=== PATIENT | male | born 1960 | race Caucasian/White ===

== ENCOUNTER 2017-11-08 11:28 | Emergency (ER) | payer MEDICARE ==
[2017-11-08 12:18] LABS: #Eosinphils 0.2 thou/uL (0.0-0.7); #Lymphocytes 1.6 thou/uL (1.20-3.40); #Monocytes 0.6 thou/uL (0.11-0.59); #Neutrophils 4.1 thou/uL (1.40-6.50); %Basophils 0.7 % (0.0-1.0); %Eosinophils 2.4 % (0.0-10.0); %Lymphocytes 24.4 % (21.0-51.0); %Monocytes 8.9 % (0.0-10.0); %Neutrophils 63.5 % (42.0-75.0); Hemoglobin 14.3 g/dL (14.0-18.0); Mean Corpuscular HGB CONC 34.1 g/dL (32.0-36.0); Mean Corpuscular Volume 91.1 fl (80.0-94.0); Mean Platelet Volume 7.2 fL (7.4-10.4); Platelet Count 187 thou/uL (130-400); Red Blood Cell (RBC) Count 4.59 mill/uL (4.70-6.10); White Blood Cell (WBC) Count 6.5 thou/uL (4.8-10.8)
[2017-11-08 12:35] LABS: Bilirubin Negative (Negative); Blood, Urine Large (Negative); Clarity CLEAR (Clear); Glucose, Urine (Dipstick) Negative (Negative); Leukocyte Negative (Negative); Nitrite Negative (Negative); Protein, Urine (Dipstick) Negative (Neg-Trace); Specific Gravity, Urine 1.005 (1.002-1.036); Urobilinogen 0.2 mg/dL (0.2-1.0)
[2017-11-08 12:38] LABS: ALT (SGPT) 27 U/L (8-55); AST (SGOT) 21 U/L (5-34); Albumin 3.9 g/dL (3.5-5.0); Alkaline Phosphatase 67 U/L (40-150); Anion Gap 13 mmol/L (10-20); BUN (Urea Nitrogen) 20 mg/dL (8.4-25.7); Bilirubin, Total 0.3 mg/dL (0.2-1.2); Calc. Creatinine Clearance 0 mL/min (70-130); Calcium 8.7 mg/dL (7.8-10.44); Carbon Dioxide 23 mmol/L (22-29); Chloride 108 mmol/L (98-107); Estimated GFR-MDRD Greater than 90; Globulin 2.6 g/dL (2.4-3.5); Glucose 95 mg/dL (70-105); Potassium 4.9 mmol/L (3.5-5.1); Protein, Total 6.5 g/dL (6.0-8.3); Sodium 139 mmol/L (136-145)
[2017-11-08 12:38] LABS: Bacteria/HPF None Seen HPF (None Seen); Hyaline Casts/LPF 0-3 HYALINE CAST LPF (0-3 Hyaline); RBC/HPF GREATER THAN 50-TNTC HPF (0-3); Squamous Epithelial None Seen HPF (0-3); WBC/HPF 0-3 HPF (0-3)
[2017-11-08] MEDS ORDERED: ISOVUE-370 76%-LOCM 1 ML ONE (14:41)
--- NOTE | 2017-11-08 17:31 | CT ---
CT ABDOMEN WITH AND WITHOUT IV CONTRAST: CT PELVIS WITH AND WITHOUT IV CONTRAST: 11/08/2017 HISTORY: Hematuria. Bleeding from penis. FINDINGS: Post cholecystectomy changes are noted. There are subcentimeter, mot-klqmw-gf-characterize, hypodense lesions in each kidney. No enhancing r enal lesion is seen. No renal or ureteral calculus is visualized bilaterally. No hydronephrosis is present. There is a subcentimeter low density focus seen within the mid portion of the left kidney, which is b est seen on the coronal reformatted images. This may represent a small parapelvic cyst, and it does appear extrinsic to the collecting system, as opposed to within the collecting system. No definite a dditional filling defect is appreciated within the opacified renal collecting systems and ureters jocelyn aterally. The lung bases, liver, spleen, pancreas, bilateral adrenal glands, and urinary bladder demonstrate a normal CT appearance. Minimal vascular calcifications are seen in the abdominal aorta and iliac arteries. There is no free fluid, fluid collection, or lymphadenopathy seen in the abdomen or pelvis. Post surgical changes of the lumbosacral junction are noted, related to posterior fusion, with bipedi cular screws and posterior rods transfixing these levels. There is prominent vacuum phenomenon seen within the T11-T12 intervertebral disk space with loss of height centrally within the T12 vertebral b charmaine, which may represent a prominent Schmorl's node, as opposed to a compression fracture. IMPRESSION: 1. Low density structure within the mid portion left renal collecting system, which likely repre sents a small parapelvic cyst, as opposed to an intrinsic filling defect within the collecting system . However, this is difficult to definitively evaluate on this exam. Given patient's clinical histor y of hematuria, a retrograde study may be helpful for further evaluation, to exclude a potential fill ing defect in the collecting system. 2. No renal or ureteral calculus. POS: [facility]
== END 2017-11-08 17:23 | disposition home or self-care (01) ==
LOC: ERS 11:28
DX: Z79.899 Other long term (current) drug therapy; F17.200 Nicotine dependence, unspecified, uncomplicated; R31.9 Hematuria, unspecified; F32.9 Major depressive disorder, single episode, unspecified; Z79.82 Long term (current) use of aspirin; I10 Essential (primary) hypertension
CPT/HCPCS: 74178; 80053; 81003; 81015; 85025; 87086

== ENCOUNTER → 2017-11-10 | Outpatient (CLI) | payer MEDICARE ==
[2017-11-10 15:39] LABS: Hemoglobin 14.4 g/dL (14.0-18.0); Mean Corpuscular HGB CONC 34.1 g/dL (32.0-36.0); Mean Corpuscular Volume 90.9 fl (80.0-94.0); Mean Platelet Volume 7.1 fL (7.4-10.4); Platelet Count 210 thou/uL (130-400); RBC Distribution Width 11.8 % (11.5-14.5); Red Blood Cell (RBC) Count 4.66 mill/uL (4.70-6.10); White Blood Cell (WBC) Count 6.1 thou/uL (4.8-10.8)
[2017-11-10 16:00] LABS: Anion Gap 9 mmol/L (10-20); BUN (Urea Nitrogen) 16 mg/dL (8.4-25.7); Calc. Creatinine Clearance 0 mL/min (70-130); Calcium 9.4 mg/dL (7.8-10.44); Carbon Dioxide 26 mmol/L (22-29); Chloride 105 mmol/L (98-107); Estimated GFR-MDRD 90; Glucose 92 mg/dL (70-105); Potassium 3.9 mmol/L (3.5-5.1); Sodium 136 mmol/L (136-145)
--- NOTE | 2017-11-11 07:53 | EKG ---
Test Reason : Blood Pressure : / mmHG Vent. Rate : 058 BPM Atrial Rate : 058 BPM P-R Int : 182 ms QRS Dur : 090 ms QT Int : 422 ms P-R-T Axes : 005 -14 -04 degrees QTc Int : 414 ms Sinus bradycardia Minimal voltage criteria for LVH, may be normal variant Borderline ECG No previous ECGs available Confirmed by DAVID MCKINNEY ([id number]) on 11/11/2017 7:53:29 AM Referred By: SG Confirmed By:DAVID MCKINNEY
== END ==
LOC: LABBT 14:26
PROVIDERS: ATTEND Urology
DX: Z01.818 Encounter for other preprocedural examination (principal); R31.9 Hematuria, unspecified
CPT/HCPCS: 80048; 85027; 93005; G0103; 93010

== ENCOUNTER 2017-11-18 15:14 | Outpatient (CLI) | payer MEDICARE ==
[2017-11-18 15:53] LABS: PTT 25.9 SEC (22.9-36.1); Prothrombin Time 12.9 SEC (12.0-14.7)
== END 2017-11-18 15:15 | disposition home or self-care (01) ==
LOC: LABBT 15:14
PROVIDERS: ATTEND Urology
DX: Z01.818 Encounter for other preprocedural examination (principal); R31.0 Gross hematuria
CPT/HCPCS: 85610; 85730; 86850; 86900; 86901

== ENCOUNTER 2017-11-25 05:39 | Day surgery (SDC) | payer MEDICARE ==
[2017-11-10 15:06] VITALS: BMI 45.0
[2017-11-25] MEDS ORDERED: Levofloxacin 500 mg/D5W 100 ml Premix Bag ONE (06:06)
[2017-11-25] MEDS ORDERED: Iothalamate Meglumine 60% 50 ML VIAL FS ONE (06:39)
[2017-11-25] MEDS ORDERED: Fentanyl 100 MCG/2 ML VIAL ONE (07:08)
[2017-11-25] MEDS ORDERED: Midazolam HCl 2 mg/2 ml Vial ONE (07:08)
[2017-11-25] MEDS ORDERED: Promethazine HCl 25 MG/ML VIAL ONE (08:49)
[2017-11-25] MEDS ORDERED: Phenazopyridine HCl 97.5 MG TABLET ONE ×2 (09:12)
--- NOTE | 2017-11-25 09:52 | RAD ---
LEFT RETROGRADE PYELOGRAM: History: Stent placement. FINDINGS: This is a series of 9 images which show a left ureteral stent to be placed within a nondilated lanterman developmental centerg system. Stent position appears satisfactory. IMPRESSION: Placement of left ureteral stent. POS: C
[2017-11-25] MEDS ORDERED: Ondansetron ODT 4 MG TAB ONE (10:52)
--- NOTE | 2017-11-25 11:49 | OP ---
DATE OF PROCEDURE: 11/25/2017 PREOPERATIVE DIAGNOSES: A 57-year-old morbidly obese male with history of gross hematuria. CT demonstrating low density left mid pole peripelvic cysts versus possible filling defect. POSTOPERATIVE DIAGNOSES: A 57-year-old morbidly obese male with history of gross hematuria. CT demonstrating low density left mid pole peripelvic cysts versus possible filling defect. PROCEDURE: Cystoscopy, dilation of left intramural distal ureter, flexible ureteroscopy, pyeloscopy, 6 x 26 double-J ureteral stent placement with dangler. SURGEON: Kirsty Shane M.D. ANESTHESIA: General. COMPLICATIONS: None apparent. SPECIMEN: None. INTRAOPERATIVE FINDINGS: 1. Coapting lateral lobes of the prostate with no significant obstruction. 2. Bladder is grossly unremarkable. 3. Left retrograde pyelogram negative for filling defects. 4. Left pyeloscopy demonstrating no evidence of intrinsic calyceal pathology amendable to biopsy. INDICATIONS FOR THE PROCEDURE AND HISTORY: Mr. Sigala is a 57-year-old morbidly obese male who presented to the emergency room due to acute onset of gross hematuria, with subsequent clearing spontaneously. The patient with history of chronic back pain with multiple lumbar surgeries and narcotics. His urine cytology is negative, culture negative and he presents today for diagnostic ureteroscopy, pyeloscopy. Risks and complications of the procedure was reviewed with patient in detail including, but not limited to, bleeding, pain, infection, sepsis, stricture formation, ureteral renal bladder injury reviewed. All questions answered and he desired to proceed. DESCRIPTION OF THE PROCEDURE: After informed consent is signed, the patient is taken to the operating room, placed in dorsal lithotomy position with the genital area prepped and draped in halle usual sterile fashion. A 21-Egyptian cystoscope was utilized. Bilateral CRISTINO hose, SCDs, and broad-spectrum antibiotics were provided. The anterior and posterior urethra was within normal limits. The lateral lobes of the prostate demonstrated coaptation; however, no obstruction noted. Bladder was entered which demonstrated normal bladder mucosa with no evidence of bladder mass, diverticulum or stones. The UO was identified in normal anatomical location with clear efflux of urine bilaterally. At this time, a 5 Egyptian open-ended catheter was utilized for retrograde pyelogram which demonstrated normal findings with no evidence of caliceal dilatation. No filling defect was appreciated. A 0.35 sensor wire was then placed in the left upper pole. Using a [employer] 4 cm 12 Egyptian balloon dilator, we dilated the intramural ureter with ease. Pressure was held for approximately 1-2 minutes. We subsequently passed a 10 Egyptian dual -lumen access sheath to the level of the left renal pelvis and a second 0.35 Super Stiff wire was passed. We passed a flexible ureteroscope via the rigid wire to the level of the renal pelvis. We surveyed the collecting system. Each calyces were directly inspected which demonstrated no evidence of intraluminal, caliceal mass of concern. I did repeat a retrograde at the level of the UPJ demonstrating that we have evaluated each mahamed thoroughly. There were no suspicious lesions warranting biopsy. No active oozing was noted. The ureter was surveyed which demonstrated no evidence of ureteral mucosal trauma and no evidence of ureteral lesion was found. A 6 x 26 double-J ureteral stent was passed over a guidewire. All guidewires were removed. The stent was placed in appropriate position with a dangler left in situ. Bladder was emptied. The dangler was taped to the patient's pubic symphysis proximal penis. He tolerated the procedure well. I did provide him with [place] refill prescription due to today's surgery 7.5, #40, ciprofloxacin, AZO, Flomax refill , Colace b.i.d. He will return to my clinic next week for stent pull on dangler. VIVI
[2017-11-25] MEDS ORDERED: Glycopyrrolate 0.2 MG/ML 5 ML SYRINGE ONE ×2 (12:16)
[2017-11-25] MEDS ORDERED: Lidocaine 1% PF 5 ML VIAL ONE (12:16)
[2017-11-25] MEDS ORDERED: PROPOFOL 200 MG/20 ML VIAL ONE (12:16)
[2017-11-25] MEDS ORDERED: ePHEDrine/0.9% NaCl/PF SYRINGE 50 mg/10 ml ONE (12:16)
[2017-11-25] MEDS ORDERED: PHENYLEPHRINE-NS 100 MCG/ML 10 ML SYRINGE ONE (12:16)
== END 2017-11-25 11:14 | disposition home or self-care (01) ==
LOC: SDC 05:39
PROVIDERS: ATTEND Urology
PROC: 0T778DZ Dilation of Left Ureter with Intraluminal Device, Via Natural or Artificial Opening Endoscopic (ICD-10-PCS; principal; 2017-11-25)
PROC: BT1FZZZ Fluoroscopy of Left Kidney, Ureter and Bladder (ICD-10-PCS; 2017-11-25)
DX: R31.0 Gross hematuria (principal); E78.5 Hyperlipidemia, unspecified; I10 Essential (primary) hypertension; F32.9 Major depressive disorder, single episode, unspecified; M54.16 Radiculopathy, lumbar region; F17.210 Nicotine dependence, cigarettes, uncomplicated; N40.1 Benign prostatic hyperplasia with lower urinary tract symptoms; R35.0 Frequency of micturition; R35.1 Nocturia; E66.01 Morbid (severe) obesity due to excess calories; Z68.42 Body mass index [BMI] 45.0-49.9, adult; Z79.1 Long term (current) use of non-steroidal anti-inflammatories (NSAID); Z79.899 Other long term (current) drug therapy
CPT/HCPCS: 74420; 96374; C1758; C1769; J1956; J2250; J2550; J3010; Q0162; Q9961

== ENCOUNTER 2018-06-17 12:45 | Outpatient (CLI) | payer MEDICARE ==
[2018-06-17 13:16] LABS: Anion Gap 13 mmol/L (10-20); BUN (Urea Nitrogen) 17 mg/dL (8.4-25.7); Calc. Creatinine Clearance 0 mL/min (70-130); Calcium 9.4 mg/dL (7.8-10.44); Carbon Dioxide 26 mmol/L (22-29); Chloride 107 mmol/L (98-107); Estimated GFR-MDRD 78; Glucose 98 mg/dL (70-105); Potassium 4.5 mmol/L (3.5-5.1); Sodium 141 mmol/L (136-145)
[2018-06-17 13:42] LABS: Bilirubin Small (Negative); Blood, Urine Negative (Negative); Clarity Hazy (Clear); Glucose, Urine (Dipstick) Negative (Negative); Leukocyte Negative (Negative); Nitrite Negative (Negative); Protein, Urine (Dipstick) Negative (Neg-Trace); Specific Gravity, Urine 1.025 (1.005-1.030); Urobilinogen 0.2 mg/dL (0.2-1.0)
[2018-06-17 13:50] LABS: Bacteria/HPF 2+ HPF (None Seen); RBC/HPF None Seen HPF (0-3); Squamous Epithelial None Seen HPF (0-3); WBC/HPF None Seen HPF (0-3)
--- NOTE | 2018-06-17 15:14 | CT ---
CT ABDOMEN WITH AND WITHOUT CONTRAST CT PELVIS WITH AND WITHOUT CONTRAST: (CT UROGRAM) Date: 06/17/18 HISTORY: 58-year-old male with R31.0 gross hematuria and left flank pain. TECHNIQUE: IV contrast: 99 mL [id number]. Precontrast scan, nephrographic/venous phase scan, and excretory/pyelographic phase scan, performed t hrough the entire abdomen and pelvis. COMPARISON: 11/08/17. FINDINGS: Again noted is the small low density lesion in the left renal sinus at the upper-mid pole (36 of 101, series 2; 38 of 101, series 3 & 4; 119 of 203, series 602). It appears to be slightly larger now osbaldo n previously, currently measuring 0.8 x 0.8 x 1.5 cm. It abuts and indents one of the left calices. There is no hydronephrosis. The bilateral renal parenchyma demonstrate several tiny subcentimeter hyp odensities which are too small to characterize, unchanged since the previous CT. There are no renal, ureteral, or bladder calculi. Urinary bladder is decompressed. No hydroureteronephrosis. No acute fin dings involving the colon. No small bowel dilation. No abdominal aortic aneurysm. No definite patholo gy identified involving liver, adrenals, pancreas, spleen, or appendix, or abdominal aorta. No ascite s. There are cholecystectomy clips in the gallbladder fossa. Bilateral pedicle screws and laminectomy defects at L5 and S1. IMPRESSION: 1. Minimal interval increase in size of left parapelvic low density lesion in the left renal sinus. This is probably a cyst, although that is not certain. Continued serial follow-up is recommended, wit h the next CT in 6 months. 2. Status post posterior lumbar fusion and laminectomy at lumbosacral junction. 3. Status post cholecystectomy. POS: [facility]
== END 2018-06-17 12:46 | disposition home or self-care (01) ==
LOC: SCSCT 12:45
PROVIDERS: ATTEND Urology
DX: N28.1 Cyst of kidney, acquired (principal); R31.0 Gross hematuria; R35.0 Frequency of micturition; Z87.891 Personal history of nicotine dependence; N28.9 Disorder of kidney and ureter, unspecified; Z98.1 Arthrodesis status; Z98.890 Other specified postprocedural states; Z90.49 Acquired absence of other specified parts of digestive tract
CPT/HCPCS: 36415; 74178; 80048; 81001; 87086; 88112

== ENCOUNTER 2019-01-03 08:06 | Outpatient (CLI) | payer MEDICARE ==
[2019-01-03] MEDS ORDERED: Iopamidol 370 76% 100 ML VIAL ONE (09:00)
[2019-01-03 09:32] LABS: Bilirubin Negative (Negative); Blood, Urine Negative (Negative); Clarity Clear (Clear); Glucose, Urine (Dipstick) Negative (Negative); Leukocyte Negative (Negative); Nitrite Negative (Negative); Protein, Urine (Dipstick) Negative (Neg-Trace); Specific Gravity, Urine 1.015 (1.005-1.030); Urobilinogen 0.2 mg/dL (0.2-1.0); pH, Urine 5.5 (5.0-9.0)
--- NOTE | 2019-01-03 09:34 | CT ---
CT of the abdomen and pelvis with and without IV contrast INDICATION: Follow-up peripelvic cyst affecting the left renal collecting system TECHNIQUE: Noncontrast CT of the abdomen and pelvis was performed. Postcontrast images were obtained in the nephrographic phase and delayed phase. Axial and coronal reformatted images were constructed from the raw data. Comparisons are made with a CT the abdomen and pelvis with and without contrast da margarita June 17, 2018 and November 08, 2017. FINDINGS: ABDOMEN: Liver: No focal hepatic lesion is evident. The gallbladder is surgically absent.. Pancreas: Normal. Gallbladder: The gallbladder is surgically absent. Adrenal glands: Normal. Kidneys: There are small subcentimeter renal cortical cysts involving both kidneys. The suspected lef t peripelvic cyst involving the left mid kidney, within the renal sinus, is stable measuring 6 mm. No new solid renal neoplasm or gross urothelial lesion is identified.. Spleen: Normal. Retroperitoneum: There are mild vascular calcifications involving the abdominal aorta. Pelvis: Bowel: There is a mild amount of retained stool within the colon. There is a normal appendix in the r ight lower quadrant. The small bowel is of normal caliber. Renal collecting system and bladder: No intraluminal filling defect or gross urothelial lesion is deirdre ntified. Reproductive structures: Normal. Rectum and perirectal soft tissues: Normal. Osseous structures: Stable compression abnormality involving T12. There is scattered degenerative and osteoarthritic change present. IMPRESSION: 1. Stable left peripelvic cysts and small subcentimeter renal cortical cysts.
[2019-01-03 10:05] LABS: Calc. Creatinine Clearance 0 mL/min (70-130); Estimated GFR-MDRD Greater than 90
[2019-01-03 10:31] LABS: Bacteria/HPF None Seen HPF (None Seen); Hyaline Casts/LPF NONE SEEN LPF (0-3 Hyaline); RBC/HPF None Seen HPF (0-3); Squamous Epithelial None Seen HPF (0-3); WBC/HPF None Seen HPF (0-3)
== END 2019-01-03 08:07 | disposition home or self-care (01) ==
LOC: SCSCT 08:06
PROVIDERS: ATTEND Urology
DX: Z12.5 Encounter for screening for malignant neoplasm of prostate (principal); N28.1 Cyst of kidney, acquired; Z87.448 Personal history of other diseases of urinary system
CPT/HCPCS: 36415; 74178; 81001; 82565; 87086; 88121; G0103; Q9967

== ENCOUNTER 2019-04-06 19:00 | Emergency (ER) | payer MEDICARE ==
[2019-04-06] MEDS ORDERED: Ketorolac Tromethamine 30 MG/ML VIAL ONE (19:58)
--- NOTE | 2019-04-06 20:04 | RAD ---
LEFT KNEE FOUR VIEWS: 04/06/19 INDICATION: Fall with left knee pain. COMPARISON: None. FINDINGS: No acute fracture or subluxation is evident. There is mild joint capsular distention. IMPRESSION: No acute fracture or subluxation. Mild joint capsular distention. POS: [facility]
== END 2019-04-06 20:20 | disposition home or self-care (01) ==
LOC: SCSER 19:00
DX: S83.92XA Sprain of unspecified site of left knee, initial encounter (principal); G47.30 Sleep apnea, unspecified; E66.9 Obesity, unspecified; E78.5 Hyperlipidemia, unspecified; F32.9 Major depressive disorder, single episode, unspecified; F17.200 Nicotine dependence, unspecified, uncomplicated; X50.1XXA Overexertion from prolonged static or awkward postures, initial encounter
CPT/HCPCS: 96372; J1885

== ENCOUNTER 2019-10-14 08:20 | Outpatient (CLI) | payer MEDICARE ==
--- NOTE | 2019-10-14 10:49 | RAD ---
PA AND LATERAL VIEWS CHEST: Date: 10/14/2019 HISTORY: Dyspnea. COMPARISON: 06/01/2020. FINDINGS: The heart size is normal. No focal areas of consolidation, pneumothoraces, or pleural effusions are s een. IMPRESSION: No acute process. POS: [facility]
== END 2019-10-14 08:21 | disposition home or self-care (01) ==
LOC: RAD 08:20
PROVIDERS: ATTEND Internal Medicine Critical Care Medicine
DX: R06.00 Dyspnea, unspecified (principal)
CPT/HCPCS: 71046

== ENCOUNTER 2019-10-28 14:30 | Emergency (ER) | payer MEDICARE ==
[2019-10-28] MEDS ORDERED: Morphine 4 MG/ML VIAL ONE (15:58)
== END 2019-10-28 16:33 | disposition home or self-care (01) ==
LOC: ERS 14:30
DX: M54.2 Cervicalgia (principal); I25.10 Atherosclerotic heart disease of native coronary artery without angina pectoris; E66.9 Obesity, unspecified; E78.5 Hyperlipidemia, unspecified; I10 Essential (primary) hypertension; F32.9 Major depressive disorder, single episode, unspecified; Z87.891 Personal history of nicotine dependence; Z79.899 Other long term (current) drug therapy; Z79.82 Long term (current) use of aspirin
CPT/HCPCS: 96372; 99283; J2270

== ENCOUNTER 2019-12-14 17:54 | Inpatient (IN) | payer MEDICARE ==
[2019-12-14 18:42] LABS: #Eosinphils 0.1 thou/uL (0.0-0.7); #Lymphocytes 1.2 thou/uL (1.20-3.40); #Monocytes 0.7 thou/uL (0.11-0.59); #Neutrophils 4.8 thou/uL (1.40-6.50); %Basophils 0.6 % (0.0-1.0); %Eosinophils 1.8 % (0.0-10.0); %Lymphocytes 17.9 % (21.0-51.0); %Monocytes 9.7 % (0.0-10.0); %Neutrophils 69.9 % (42.0-75.0); Hemoglobin 14.4 g/dL (14.0-18.0); Mean Corpuscular HGB CONC 32.3 g/dL (32.0-36.0); Mean Corpuscular Hemoglobin 30.2 pg (27.0-31.0); Mean Corpuscular Volume 93.7 fL (78.0-98.0); Mean Platelet Volume 7.4 fL (7.4-10.4); Platelet Count 177 thou/uL (130-400); RBC Distribution Width 11.5 % (11.5-14.5); Red Blood Cell (RBC) Count 4.76 mill/uL (4.70-6.10); White Blood Cell (WBC) Count 6.9 thou/uL (4.8-10.8)
[2019-12-14] MEDS ORDERED: Lorazepam 2 MG/ML VIAL ONE (18:54)
[2019-12-14 19:04] LABS: ALT (SGPT) 24 U/L (8-55); AST (SGOT) 26 U/L (5-34); Alkaline Phosphatase 73 U/L (40-110); Anion Gap 15 mmol/L (10-20); BUN (Urea Nitrogen) 11 mg/dL (8.4-25.7); Bilirubin, Total 0.7 mg/dL (0.2-1.2); Calc. Creatinine Clearance 0 mL/min (70-130); Calcium 9.6 mg/dL (7.8-10.44); Carbon Dioxide 25 mmol/L (22-29); Chloride 103 mmol/L (98-107); Estimated GFR-MDRD Greater than 90; Glucose 93 mg/dL (70-105); Sodium 139 mmol/L (136-145)
--- NOTE | 2019-12-14 21:53 | PDOC.FPRHP ---
- History of Present Illness Chief Complaint: leg weakness, falls History of Present Illness: 59 y/o M PMHx: CAD, insomnia, ARSALAN, BPH, chronic neck pain 2/2 spinal stenosis presents to ED for left leg weakness, falls. He was recently admitted for this same problem. Recently he has started feeling more unsteady on his feet with a couple of recent falls. He was diagnosed earlier this week with cellulitis and started on doxycycline. He reports his symptoms started in May. He reports episodes of weakness, feeling unsteady, and urinary incontinence. His symptoms have been getting progressively worse. He reports insomnia and has not been sleeping well lately. We discussed this patient with Dr. Weldon who believes that he is much worse than he has been. She wanted him admitted for further workup. The ER doctor briefly discussed the case with neurosurgery who do not belief this is related to cauda equina syndrome. ED Course: He was evaluated in the ED by Dr. Lindsay, he was given ativan 2mg. postvoid residual checked with bladder scan and was 120mL. - Allergies/Adverse Reactions Allergies Allergy/AdvReac Type Severity Reaction Status Date / Time No Known Allergies Allergy Unverified 10/23/19 01:32 - Home Medications Medication Instructions Recorded Confirmed Type Citalopram Hydrobromide 20 mg PO BID 11/10/17 12/14/19 History [Citalopram HBr] Diclofenac Sodium 75 mg PO BID 11/10/17 12/14/19 History HYDROcodone/Acetaminophen 1 tab PO TID PRN 11/10/17 12/14/19 History [Hydrocodone-Acetamin 7.5-325] Losartan Potassium 100 mg PO DAILY 11/10/17 12/14/19 History Metoprolol Succinate 50 mg PO DAILY 11/10/17 12/14/19 History Simvastatin [Zocor] 20 mg PO HS 11/10/17 12/14/19 History Tamsulosin HCl 0.4 mg PO HS 11/10/17 12/14/19 History Zolpidem Tartrate [Ambien] 10 mg PO HS 11/10/17 12/14/19 History traZODone HCl [Trazodone HCl] 100 mg PO HS 11/10/17 12/14/19 History Albuterol Sulfate [Ventolin HFA] 2 puff INH Q4HR PRN 12/12/19 12/12/19 History Omeprazole 40 mg PO DAILY 12/12/19 12/14/19 History Amitriptyline HCl [Elavil] 150 mg PO HS tab 12/13/19 12/14/19 Rx Aspirin [Ecotrin Low Strength] 81 mg PO DAILY 12/13/19 12/14/19 History Beta-Carotene(A)-Vits C,E/Mins 1 tablet PO DAILY 12/13/19 12/14/19 History [Vision Vitamins] Doxycycline [Vibramycin] 100 mg PO BID #20 cap 12/13/19 12/14/19 Rx - History PMHx: CAD, insomnia, BPH, chronic neck pain, spinal stenosis, depression PSHx: cholecystectomy, back sx x2, knee sx, bilateral foot sx FHx: noncontributory Social: former tobacco use, drinks socially, 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 Weldon - Review of Systems ROS unobtainable: due to mental status (Pt falling asleep regularly during the exam) General: denies: fever/chills, weight/appetite/sleep changes, night sweats, fatigue Eyes: denies: eye pain, vision changes ENT: denies: nasal congestion, rhinorrhea Respiratory: denies: cough Cardiovascular: denies: chest pain, palpitation, edema Genitourinary: denies: incontinence, dysuria Skin: denies: rashes, lesions Musculoskeletal: reports: pain, tenderness, stiffness Neurological: reports: weakness. denies: syncope, seizure Psychological: reports: depression. denies: anxiety - Vital signs BP: 170/92, Pulse: 61, Resp: 20, Temp: 98.7 (Oral), Pain: 0, O2 sat: 96 on ( Room Air), Wt 131 kg. - Physical Exam Constitutional: other (Pt is oriented x2, falling asleep during exam, no distress.) HEENT: PERRLA, grossly normal hearing, other (MMM, cannot move eyes) Neck: no JVD Heart: RRR, normal S1/S2, no murmurs/rubs/gallops Lungs: CTAB, good air movement, other (tachypnic) Abdomen: other (obese, non tender) Musculoskeletal: normal structure, normal tone Neurological: CN II-XII intact, other (Exam was limited by pt's somulence. Proprioception is decreased in lower extremities, cerebellar testing was normal except for his finger to nose testing.) Skin: good turgor, capillary refill <2 seconds, other (improving redness on his left lower foot) Psychiatric: other (sleepy) FMR H&P: Results - Labs Result Diagrams: 12/15/19 03:08 12/15/19 03:08 Lab results: WBC 6.9 thou/uL (4.8-10.8) 12/14/19 18:31 Hgb 14.4 g/dL (14.0-18.0) 12/14/19 18:31 Hct 44.6 % (42.0-52.0) 12/14/19 18: MCV 93.7 fL (78.0-98.0) 12/14/19 18:31 Plt Count 177 thou/uL (130-400) 12/14/19 18:31 Neutrophils % 69.9 % (42.0-75.0) 12/14/19 18:31 Sodium 139 mmol/L (136-145) 12/14/19 18: Potassium 4.0 mmol/L (3.5-5.1) 12/14/19 18: Chloride 103 mmol/L (98-107) 12/14/19 18:31 Carbon Dioxide 25 mmol/L (22-29) 12/14/19 18:31 BUN 11 mg/dL (8.4-25.7) 12/14/19 18: Creatinine 0.79 mg/dL (0.7-1.3) 12/14/19 18: Glucose 93 mg/dL (70-105) 12/14/19 18: Calcium 9.6 mg/dL (7.8-10.44) 12/14/19 18: Total Bilirubin 0.7 mg/dL (0.2-1.2) 12/14/19 18:31 AST 26 U/L (5-34) 12/14/19 18:31 ALT 24 U/L (8-55) 12/14/19 18:31 Alkaline Phosphatase 73 U/L (40-110) 12/14/19 18:31 Serum Total Protein 7.0 g/dL (6.0-8.3) 12/14/19 18: Albumin 4.0 g/dL (3.5-5.0) 12/14/19 18:31 FMR H&P: A/P - Problem List (1) BPH (benign prostatic hyperplasia) Current Visit: No Status: Acute Code(s): N40.0 - BENIGN PROSTATIC HYPERPLASIA WITHOUT LOWER URINRY TRACT SYMP (2) CAD (coronary artery disease) Current Visit: No Status: Acute Code(s): I25.10 - ATHSCL HEART DISEASE OF [place] CORONARY ARTERY W/O ANG PCTRS (3) Cellulitis of left foot Current Visit: No Status: Acute Code(s): L03.116 - CELLULITIS OF LEFT LOWER LIMB (4) Chronic pain Current Visit: No Status: Acute Code(s): G89.29 - OTHER CHRONIC PAIN (5) Depression Current Visit: No Status: Acute Code(s): F32.9 - MAJOR DEPRESSIVE DISORDER, SINGLE EPISODE, UNSPECIFIED (6) H/O fall Current Visit: No Status: Acute Code(s): Z91.81 - HISTORY OF FALLING (7) HLD (hyperlipidemia) Current Visit: No Status: Acute Code(s): E78.5 - HYPERLIPIDEMIA, UNSPECIFIED (8) HTN (hypertension) Current Visit: No Status: Acute Code(s): I10 - ESSENTIAL (PRIMARY) HYPERTENSION (9) Obesity Current Visit: No Status: Acute Code(s): E66.9 - OBESITY, UNSPECIFIED (10) Spinal stenosis Current Visit: No Status: Acute Code(s): M48.00 - SPINAL STENOSIS, SITE UNSPECIFIED - Plan 1. h/o Fall Pt reports recent falls and urinary incontinence. CT head from yesterday is negative for acute intracranial findings. Per family these changes have been ongoing for about [address] Mock with neurosurgery who is working up his spinal stenosis of his neck. -Pt is too large for MRI and also does not believe he could lay still without pain -Consult PT/OT -Neuro tests are grossly normal, although there was some difficulty with the pt falling asleep during the exam. May represent ARSALAN vs sleep -Cosult Neurology in the AM 2. LLE cellulitis -Continue home doxycycline -Appears improved 3. CAD -Cont aspirin, losartan, metoprolol 4. HTN -Cont losartan, metoprolol 5. HLD -Cont simvastatin 6. Depression -Cont celexa 7. BPH -Cont tasulosin 8. Chronic pain 2/2 spinal stenosis -Cont norco, diclofenac, amitriptyline 9. Possible ARSALAN -Pending ABG to check CO2 -Autopap if available tonight Diet: HH VTE ppx: lovenox Code Status: Full Disposition: DC in 1-2 days PCP: Dr. Weldon Addendum - Attending - Attending Attestation Date/Time: 12/15/19 0807 I personally evaluated the patient and discussed the management with Dr. Randall. I agree with the History, Examination, Assessment and Plan documented above with any addition or exceptions noted below. Patient on admission largely appeared similar to his presentation earlier this week. I spoke with his PCP Dr. Weldon and she states that he is typically very lucid and able to hold a conversation, whereas he was more inattentive and intermittently somnolent, especially apparently during the residents' evaluation. He has a relatively nonfocal neurologic exam. His SILT throughout, including to light touch in the L4/L5 and upper S distributions. He again does not have elicitable LE reflexes, but his motor function is 5/5. He was unable to ambulate on command but managed to transfer to chair without nurse knowledge on his own. His hear and lung exam is unchanged. His LLE cellulitis is unchanged from prior. Acute encephalopathy -recent CT unremarkable -will get blood gas to eval for hypoventilation, I have low suspicion for PE at this time -if hypoventilation I also discussed with Dr. Weldon who feels likely 2/2 obesity-hypoventilation syndrome. I think this is possible, but sleep apnea with ? pulm HTN as a sequelae remains a consideration. I believe his family is focused on his cervical stenosis, but I do not know of a case of hypoventilation caused by this. Further workup pending BG. -glucose is normal -no evidence for cirrhosis -recent CT with no evidence of for NPH Frequent falls -see above -?B12 deficiency, low suspicion for spinal abscess as no fever or significant focal findings -PT to evaluate, he will likely need placement -low clinical suspicion for cauda equina and neurosx was consulted by the ER, they agree For imaging he apparently will not fit in an MRI scanner. I have asked if we could at least get his neck and we will see, with eval limited by his respiratory status. A CT may be helpful as well.
[2019-12-14] MEDS ORDERED: Ondansetron PF 4 MG/2 ML Vial IVP PRN (23:51)
[2019-12-14] MEDS ORDERED: Acetaminophen 650 MG Suppository PR PRN (23:51)
[2019-12-14] MEDS ORDERED: Ondansetron ODT 4 MG TAB PO PRN (23:51)
[2019-12-15 00:07] VITALS: BMI 40.5
[2019-12-15 01:26] LABS: Actual Bicarbonate (HCO3a) 29.2 mEq/L (22-28); Base Excess (BEa) 0.6 mEq/L (-2.0 to +3.0); Calcium, Ionized 1.23 mmol/L (1.12-1.30); Carboxyhemoglobin (COHb) 1.8 gm% (0.0-3.0); Hemoglobin (Hb) 14.9 g/dL (14.0-18.0); O2 Tension (PaO2), arterial 60.2 mmHg (> 80.0); Potassium - ABG Lab 3.99 mmol/L (3.70-5.30); pH, Arterial 7.27 (7.35-7.45)
[2019-12-15 01:29] LABS: CO2 Tension 64.6 mmHg (35.0-45.0); Puncture Site LRA
--- NOTE | 2019-12-15 01:45 | PDOC.BPN ---
<Kayla Randall - Last Filed: 12/15/19 01:43> - Brief Progress Note Received call from nurse that pt desatted to 80s while he was asleep. They had not gotten ABG yet and he hadn't received CPAP to use overnight. Asked them to call and get ABG and then went up to eval pt. He appeared tachypneic. He was alert and able to talk to me, satting 96% on 2L O2. Lungs had diminished breath sounds at bases and CTAB otherwise. ABG result showed pH 7.27, pO2 60.2, pCO2 64.6, HCO3 29.2 Recommended transferring pt to IMCU overnight on BIPAP. Will monitor closely. Discussed with Dr. Campbell who agreed with plan. <Shar Campbell - Last Filed: 12/15/19 08:19> Addendum - Attending - Attending Attestation Date/Time: 12/15/19 0818 On my eval after BiPAP had been in place the patient was more interactive than reported by nursing and Dr. Randall. Repeat BG improved. Continue efforts at workup.
[2019-12-15 03:34] LABS: #Lymphocytes 0.7 thou/uL (1.20-3.40); #Monocytes 0.6 thou/uL (0.11-0.59); #Neutrophils 5.4 thou/uL (1.40-6.50); %Basophils 0.1 % (0.0-1.0); %Eosinophils 0.4 % (0.0-10.0); %Lymphocytes 10.4 % (21.0-51.0); %Neutrophils 80.1 % (42.0-75.0); Hemoglobin 13.7 g/dL (14.0-18.0); Mean Corpuscular HGB CONC 31.7 g/dL (32.0-36.0); Mean Corpuscular Hemoglobin 30.3 pg (27.0-31.0); Mean Corpuscular Volume 95.6 fL (78.0-98.0); Platelet Count 169 thou/uL (130-400); RBC Distribution Width 11.4 % (11.5-14.5); Red Blood Cell (RBC) Count 4.51 mill/uL (4.70-6.10); White Blood Cell (WBC) Count 6.8 thou/uL (4.8-10.8)
[2019-12-15 04:15] LABS: ALT (SGPT) 22 U/L (8-55); AST (SGOT) 28 U/L (5-34); Albumin 3.6 g/dL (3.5-5.0); Alkaline Phosphatase 66 U/L (40-110); Anion Gap 15 mmol/L (10-20); BUN (Urea Nitrogen) 13 mg/dL (8.4-25.7); Bilirubin, Total 0.4 mg/dL (0.2-1.2); Calc. Creatinine Clearance 201 mL/min (70-130); Carbon Dioxide 23 mmol/L (22-29); Chloride 105 mmol/L (98-107); Estimated GFR-MDRD Greater than 90; Globulin 3.2 g/dL (2.4-3.5); Glucose 103 mg/dL (70-105); Potassium 4.4 mmol/L (3.5-5.1); Protein, Total 6.8 g/dL (6.0-8.3); Sodium 139 mmol/L (136-145)
--- NOTE | 2019-12-15 06:09 | PDOC.FM ---
- Subjective Subjective: Pt sleeping on BiPAP this morning. Did not arouse with verbal/tactile stimulation. - Objective MAR Reviewed: Yes Vital Signs & Weight: Vital Signs (12 hours) Temp Pulse Resp BP Pulse Ox 12/15/19 03:43 97.5 F L 12/15/19 02:39 71 28 H 97 12/15/19 02:00 96 12/15/19 00:00 97 12/14/19 23:25 98 F 70 20 136/68 97 Weight Weight 131.8 kg Most Recent Monitor Data Heart Rate from ECG 57 NIBP 122/67 NIBP BP-Mean 85 Respiration from ECG 14 SpO2 96 Result Diagrams: 12/15/19 03:08 12/15/19 03:08 Phys Exam - Physical Examination Constitutional: NAD Respiratory: no wheezing, clear to auscultation bilateral poor air movement Cardiovascular: RRR, no significant murmur Gastrointestinal: soft, non-tender, positive bowel sounds Musculoskeletal: edema present (trace b/l) appears somnolent Deviation from normal: LLE cellulitis extending up to ankle, 1+ pitting edema at ankle, erythema -: improved from previous exam Dx/Plan (1) BPH (benign prostatic hyperplasia) Code(s): N40.0 - BENIGN PROSTATIC HYPERPLASIA WITHOUT LOWER URINRY TRACT SYMP Status: Acute (2) CAD (coronary artery disease) Code(s): I25.10 - ATHSCL HEART DISEASE OF [place] CORONARY ARTERY W/O ANG PCTRS Status: Acute (3) Cellulitis of left foot Code(s): L03.116 - CELLULITIS OF LEFT LOWER LIMB Status: Acute (4) Chronic pain Code(s): G89.29 - OTHER CHRONIC PAIN Status: Acute (5) Depression Code(s): F32.9 - MAJOR DEPRESSIVE DISORDER, SINGLE EPISODE, UNSPECIFIED Status : Acute (6) H/O fall Code(s): Z91.81 - HISTORY OF FALLING Status: Acute (7) HLD (hyperlipidemia) Code(s): E78.5 - HYPERLIPIDEMIA, UNSPECIFIED Status: Acute (8) HTN (hypertension) Code(s): I10 - ESSENTIAL (PRIMARY) HYPERTENSION Status: Acute (9) Obesity Code(s): E66.9 - OBESITY, UNSPECIFIED Status: Acute (10) Spinal stenosis Code(s): M48.00 - SPINAL STENOSIS, SITE UNSPECIFIED Status: Acute - Plan Plan: Acute encephalopathy H/o Fall, weakness, urinary incontinence - 6 month decline per family - Pt is too large in girth for MRI; however, will call MRI to see if cervical spine and MRI brain can be performed - PT/OT consulted - Neurology, Dr. Shin consulted. Requested EEG which has been ordered Acute hypercapneic respiratory failure - pt currently on BiPAP 12/6 IPAP/EPAP with improved ABG as compared to being on NC O2 - desatted to 80% overnight, may represent ARSALAN vs OHS vs decreased respiratory drive as some complication of his cervical spine stenosis. Other DDx includes decreased respiratory drive 2/2 narcotics and/or polypharmacy - May consider discussing case w/ pt's neurosurgeon Dr. Mock if pt does not clinically improve over the next couple of days. LLE cellulitis, improving -Continue home doxycycline CAD -Cont aspirin, losartan, metoprolol HTN -Cont losartan, metoprolol HLD -Cont simvastatin Depression -Cont celexa BPH -Cont tamsulosin Chronic pain 2/2 spinal stenosis -Cont norco, diclofenac, amitriptyline Diet: HH VTE ppx: lovenox Code Status: Full PCP: Dr. Weldon Addendum - Attending - Attending Attestation Date/Time: 12/15/19 3590 I personally evaluated the patient and discussed the management with Dr. Carrasquillo. I agree with the History, Examination, Assessment and Plan documented above with any addition or exceptions noted below. Patient currently on Bipap getting EEG. I suspect his encephalopathy is 2/2 ARSALAN/ Obesity hypoventilation and sedative effect from his narcotics. Pursuing workup. Neurology consulted.
[2019-12-15 07:35] LABS: Base Excess (BEa) -0.7 mEq/L (-2.0 to +3.0); CO2 Tension 51.1 mmHg (35.0-45.0); Calcium, Ionized 1.23 mmol/L (1.12-1.30); Carboxyhemoglobin (COHb) 1.8 gm% (0.0-3.0); O2 Tension (PaO2), arterial 80.5 mmHg (> 80.0); Potassium - ABG Lab 4.02 mmol/L (3.70-5.30); pH, Arterial 7.33 (7.35-7.45)
[2019-12-15 07:38] LABS: ALV-art Gradient 33.875 (0-20); Puncture Site L.R.
[2019-12-15] MEDS: Enoxaparin Sodium 40 MG/0.4 ML SYRINGE SC SCH (09:34)
--- NOTE | 2019-12-15 12:28 | CON ---
DATE OF CONSULTATION: 12/15/2019 REASON FOR CONSULTATION: Altered mental status. HISTORY OF PRESENT ILLNESS: Mr. Sigala is a 59-year-old male with medical history significant for obstructive sleep apnea, insomnia, coronary artery disease, benign prostatic hyperplasia, and chronic neck pain secondary to cervical spine stenosis, presented to the emergency room with increased somnolence and left leg weakness. The history is taken from the records per daughter. He had a lot of falls in the last 6 months, and since the last week, he has not been sleeping properly and became extremely somnolent since yesterday afternoon, so they decided to bring him here for further evaluation. In the emergency room, he was given Ativan and admitted to IMCU to monitor his breathing. - Allergies/Adverse Reactions Allergies Allergy/AdvReac Type Severity Reaction Status Date / Time No Known Allergies Allergy Unverified 10/23/19 01:32 - Home Medications Medication Instructions Recorded Confirmed Type Citalopram Hydrobromide 20 mg PO BID 11/10/17 12/14/19 History [Citalopram HBr] Diclofenac Sodium 75 mg PO BID 11/10/17 12/14/19 History HYDROcodone/Acetaminophen 1 tab PO TID PRN 11/10/17 12/14/19 History [Hydrocodone-Acetamin 7.5-325] Losartan Potassium 100 mg PO DAILY 11/10/17 12/14/19 History Metoprolol Succinate 50 mg PO DAILY 11/10/17 12/14/19 History Simvastatin [Zocor] 20 mg PO HS 11/10/17 12/14/19 History Tamsulosin HCl 0.4 mg PO HS 11/10/17 12/14/19 History Zolpidem Tartrate [Ambien] 10 mg PO HS 11/10/17 12/14/19 History traZODone HCl [Trazodone HCl] 100 mg PO HS 11/10/17 12/14/19 History Albuterol Sulfate [Ventolin HFA] 2 puff INH Q4HR PRN 12/12/19 12/12/19 History Omeprazole 40 mg PO DAILY 12/12/19 12/14/19 History Amitriptyline HCl [Elavil] 150 mg PO HS tab 12/13/19 12/14/19 Rx Aspirin [Ecotrin Low Strength] 81 mg PO DAILY 12/13/19 12/14/19 History Beta-Carotene(A)-Vits C,E/Mins 1 tablet PO DAILY 12/13/19 12/14/19 History [Vision Vitamins] Doxycycline [Vibramycin] 100 mg PO BID #20 cap 12/13/19 12/14/19 Rx - History PMHx: CAD, insomnia, BPH, chronic neck pain, spinal stenosis, depression PSHx: cholecystectomy, back sx x2, knee sx, bilateral foot sx FHx: noncontributory Social: former tobacco use, drinks socially, 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 Weldon - Review of Systems ROS unobtainable: due to mental status- extreme somnolence General: denies: fever/chills, weight/appetite/sleep changes, night sweats, fatigue Eyes: denies: eye pain, vision changes ENT: denies: nasal congestion, rhinorrhea Respiratory: denies: cough Cardiovascular: denies: chest pain, palpitation, edema Genitourinary: denies: incontinence, dysuria Skin: denies: rashes, lesions Musculoskeletal: reports: pain, tenderness, stiffness Neurological: reports: weakness. denies: syncope, seizure Psychological: reports: depression. denies: anxiety - Objective MAR Reviewed: Yes Vital Signs & Weight: Vital Signs (12 hours) Temp Pulse Resp BP Pulse Ox 12/15/19 03:43 97.5 F L 12/15/19 02:39 71 28 H 97 12/15/19 02:00 96 12/15/19 00:00 97 12/14/19 23:25 98 F 70 20 136/68 97 Weight Weight 131.8 kg Most Recent Monitor Data Heart Rate from ECG 57 NIBP 122/67 NIBP BP-Mean 85 Respiration from ECG 14 SpO2 96 PHYSICAL EXAMINATION: GENERAL: The patient is extremely somnolent. Follows commands intermittently. HEENT: Normocephalic and atraumatic. NECK: Supple. HEART: Regular rate and rhythm. CHEST: Clear. ABDOMEN: Soft. NEUROLOGIC: Mental status, the patient is extremely somnolent, but opens his eyes on verbal stimuli. He is oriented to person, place, and time. He follows commands intermittently. Speech is clear. Motor muscle tone and bulk are normal. Spontaneous movement of all 4 extremities seen. Cerebellar, did not cooperate with the exam. Reflexes 2+ bilaterally. Sensory, withdraws to nailbed pressure bilaterally. Cranial nerves, pupils equal and react to light. Face symmetric. Tongue midline. Moves neck in both direction. Hearing seems to be intact. DIAGNOSTIC STUDIES: Data reviewed. I reviewed the labs, which were essentially unremarkable. ASSESSMENT AND PLAN: Mr. Maria L Sigala is a 59-year-old male with medical history significant for coronary artery disease, chronic pain, hypertension, hyperlipidemia, obesity, and spinal stenosis, admitted because of recent falls and increased somnolence. 1.Consider repeat head CT today to rule out acute intracranial findings. 2. CT of the cervical spine to follow up on cervical stenosis, which is most likely the cause of falls. 3. Recommend EEG to rule out underlying seizure activity. 4. Neuro checks every 4 hours. 5. Continue home medications. 6. Continue medical management per primary team. The patient cannot have MRI because of his weight. Further recommendations depend on the results of the testing. We will continue to follow. Job ID: [id number] MTDD
--- NOTE | 2019-12-15 14:09 | EEG ---
Referring Physician: Ainsley AGUILAR EEG # [id number] TEST TYPE: EXTENDED CONTINUOUS VIDEO EEG REPORT: This EEG was performed using 24 channel Normal video digital EEG machine with 24 disc electrodes. This was an extended 2 hour 5 minutes of EEG recording. Digital analysis of the EEG was done by spike and seizure detection which revealed no abnormalities. BACKGROUND: The posterior background rhythm is a nonsustained background rhythm of 7 hertz. Minimal reactivity seen with eye opening and closure. HYPERVENTILATION: Not performed. PHOTIC STIMULATION: No significant response seen with photic stimulation: SLEEP: Drowsiness and sleep are observed. EEG DIAGNOSIS: 1.) Intermittent irregular theta activity seen during the recording. 2.) Nonsustained slow posterior background rhythm. CLINICAL INTERPRETATION: THIS EEG IS CONSISTENT WITH MODERATE GENERALIZED NONSPECIFIC CEREBRAL DYSFUNCTION. NO ICTAL OR INTERICTAL EPILEPTIFORM ABNORMALITIES SEEN DURING THE RECORDING. Manager Budget: MENDY Pension Administrator: [email or web address] TRINIDAD
[2019-12-15] MEDS ORDERED: PROVENTIL INHALER 6.7 G (200 INHALATIONS) INH PRN (16:29)
--- NOTE | 2019-12-15 17:20 | PDOC.BPN ---
- Brief Progress Note Per RN patient talking through BiPAP and wanting mask off. Trial off BiPAP. Satting 95% on 2L NC. Patient may remain off BiPAP during the day. Recommend continued usage at night. After BiPAP removed, attempted to obtain CT of head/c-spine for patient; but he could not lay flat because he "felt his throat collapsing" and complained he could not breathe. He did not desat when laying flat. Spoke w/ who said she did not think pt was taking more of his narcotics than he is supposed to. Spoke w/ PCP Shiraz who said pt has not asked for early refills of any sort. Cedric Hankins who suspects a more acute cause of hypercapnia. Considering the patient's high pCO2 in setting of normal bicarb, he would expect bicarb to be elevated due to compensation if chronic (such as in OHS). Will restart home meds but hold [place], amitriptyline, trazodone, and zolpidem. UDS pending. Waiting for patient to urinate.
[2019-12-15] MEDS: Tamsulosin HCl 0.4 MG CAP PO SCH (20:37)
[2019-12-15] MEDS: Doxycycline 100 MG CAP PO SCH (20:37)
[2019-12-15] MEDS: Citalopram 20 MG TAB PO SCH (20:38)
[2019-12-15] MEDS ORDERED: Simvastatin 20 MG TAB PO SCH (21:00)
--- NOTE | 2019-12-16 01:13 | CON ---
DATE OF CONSULTATION: 12/15/2019 REASON FOR CONSULTATION: Elevated CO2 and need for BIPAP. HISTORY OF PRESENT ILLNESS: The patient is a 59-year-old male admitted to the [facility] yesterday with the chief complaint of inability to fall asleep, neck pain, leg weakness and falling. He has been followed by my partner, Dr. Pena in the office. He has had shortness of breath for quite some time. This has been attributed to obesity. He has had 2 attempted sleep studies in the past at [facility], but did not fall asleep in either case and further workup was aborted. Apparently, he has had pulmonary function test in the past, which probably showed restriction per the patient's description. Because of his neck pain, he has been taking hydrocodone 3 times daily. He denies that he has been taking any more than that. MEDICATIONS: List is also notable for: 1. Ambien. 2. Trazodone. 3. Citalopram. 4. Diclofenac. 5. Amitriptyline. PAST MEDICAL HISTORY: 1. Coronary artery disease. 2. Insomnia. 3. Benign prostatic hypertrophy. 4. Chronic neck pain with spinal stenosis. 5. Depression. 6. Morbid obesity. PAST SURGICAL HISTORY: 1. Cholecystectomy. 2. Back surgery x2. 3. Knee surgery. 4. Bilateral foot surgery. FAMILY MEDICAL HISTORY: Unremarkable. 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 Occasionally drinks alcohol. 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 He is able to perform all activities of daily living without much limitation. REVIEW OF SYSTEMS: Denies any fever, chills, nausea, vomiting,hematemesis, melena, hematochezia, hematuria, or dysuria. PHYSICAL EXAMINATION: VITAL SIGNS: Height 5 feet 11 inches, weight 290 pounds, BMI is 40.5. VITAL SIGNS: Temperature 97.8, pulse 87, blood pressure 141/68, respiratory rate 13, O2 saturation 99%. GENERAL: He is an obese male, sitting up in a chair, eating his dinner, in no acute distress. HEENT: Unremarkable except for pupils that are 2 mm. NECK: No adenopathy or JVD. LUNGS: Clear to auscultation without wheezing or rhonchi. CARDIOVASCULAR EXAM: S1 and S2 regular. ABDOMEN: Soft, obese, nontender, and nondistended. EXTREMITIES: No clubbing, cyanosis, or edema. IMAGING: His last chest x-ray from 12/11 shows bilateral elevated hemidiaphragms, likely consistent with hypoventilation from obesity. LABORATORY DATA: White blood cell count 6.8, hematocrit 43.1, and platelet count 169. PH was 7.33, pCO2 of 51, and pO2 of 80, and is on 25% oxygen. AA gradient of 33. At the time of admission, pH was 7.27, pCO2 of 64, pO2 of 60, with AA greater than 58 with 28% inspired O2. Sodium 139, potassium 4.4, chloride 105, CO2 of 23, BUN 13, creatinine 0.7, glucose 103. ASSESSMENT: 1. I was asked to see the patient by the residents to rule out obesity hypoventilation syndrome. I think, if he truly had obesity hypoventilation syndrome, his serum bicarbonate would be much higher than what it is. In all actuality, his serum bicarbonate level is normal. Also his AA gradient on his blood gas was relatively normal given the inspired FiO2. This would go along with hypoventilation from medications such as narcotics, antidepressants and sleep inducing medication. His obesity also can contribute to this problem. 2. Dyspnea, likely multifactorial from obesity, restrictive lung disease, hypoventilation and perhaps some component of chronic pain. RECOMMENDATION: At some point in the future, he will need a sleep study. I do not see anything that I can reverse right now with medication. He would not qualify for home BiPAP on the basis of his elevated pCO2, because this is not obesity hypoventilation syndrome. 1. I would recommend seriously considering limiting his pain medications and his sleep inducing medications at home. He may need 1 sleep inducing medication, but definitely does not need to be on 3 or 4 that he was currently taking. 2. I will inform Dr. Pena of the patient's admission. Job ID: [id number]
[2019-12-16 01:49] LABS: Amphetamine Not Detected (NotDetected); Barbiturates Screen Not Detected (NotDetected); Benzodiazepine Screen Detected (NotDetected); Cocaine Metabolite Screen Not Detected (NotDetected); Medtox Control Line Valid? VALID (VALID); Medtox Reader # READER 4; Methadone Not Detected (NotDetected); Methamphetamine Not Detected (NotDetected); Opiate Screen Not Detected (NotDetected); Oxycodone Screen Not Detected (NotDetected); Phencyclidine (PCP) Not Detected (NotDetected); THC/Cannabinoid Screen Not Detected (NotDetected); Tricyclic Screen Not Detected (NotDetected)
[2019-12-16 03:55] LABS: #Eosinphils 0.2 thou/uL (0.0-0.7); #Lymphocytes 1.9 thou/uL (1.20-3.40); #Monocytes 1.1 thou/uL (0.11-0.59); #Neutrophils 4.5 thou/uL (1.40-6.50); %Basophils 0.5 % (0.0-1.0); %Eosinophils 2.2 % (0.0-10.0); %Lymphocytes 24.8 % (21.0-51.0); %Neutrophils 58.5 % (42.0-75.0); Hemoglobin 13.8 g/dL (14.0-18.0); Mean Corpuscular HGB CONC 32.9 g/dL (32.0-36.0); Mean Corpuscular Hemoglobin 31.2 pg (27.0-31.0); Mean Platelet Volume 7.8 fL (7.4-10.4); Platelet Count 174 thou/uL (130-400); RBC Distribution Width 11.4 % (11.5-14.5); Red Blood Cell (RBC) Count 4.42 mill/uL (4.70-6.10); White Blood Cell (WBC) Count 7.6 thou/uL (4.8-10.8)
[2019-12-16 04:16] LABS: Anion Gap 14 mmol/L (10-20); BUN (Urea Nitrogen) 23 mg/dL (8.4-25.7); Calc. Creatinine Clearance 185 mL/min (70-130); Calcium 8.8 mg/dL (7.8-10.44); Carbon Dioxide 27 mmol/L (22-29); Chloride 100 mmol/L (98-107); Estimated GFR-MDRD Greater than 90; Glucose 87 mg/dL (70-105); Potassium 3.9 mmol/L (3.5-5.1); Sodium 137 mmol/L (136-145)
--- NOTE | 2019-12-16 06:11 | PDOC.FM ---
- Subjective Subjective: Pt has neck pain this AM. Explained to him risk of respiratory depression and why it was held. Otherwise, ate well yesterday. - Objective MAR Reviewed: Yes Vital Signs & Weight: Vital Signs (12 hours) Temp Pulse Resp BP Pulse Ox 12/16/19 04:00 97.9 F 85 20 121/81 100 12/16/19 02:53 99 12/16/19 00:58 78 19 99 12/16/19 00:00 98.6 F 12/15/19 20:00 99.1 F 98 Weight Admit Weight 131.8 kg Weight 131.8 kg Most Recent Monitor Data Heart Rate from ECG 91 NIBP 121/81 NIBP BP-Mean 94 Respiration from ECG 20 SpO2 95 I&O: 12/14/19 12/15/19 12/16/19 06:59 06:59 06:59 Intake Total 350 Balance 350 Result Diagrams: 12/16/19 03:13 12/16/19 03:13 Phys Exam - Physical Examination Constitutional: NAD Respiratory: no wheezing, clear to auscultation bilateral Cardiovascular: RRR Neurological: non-focal Psychiatric: normal affect, A&O x 3 Dx/Plan (1) BPH (benign prostatic hyperplasia) Code(s): N40.0 - BENIGN PROSTATIC HYPERPLASIA WITHOUT LOWER URINRY TRACT SYMP Status: Acute (2) CAD (coronary artery disease) Code(s): I25.10 - ATHSCL HEART DISEASE OF [place] CORONARY ARTERY W/O ANG PCTRS Status: Acute (3) Cellulitis of left foot Code(s): L03.116 - CELLULITIS OF LEFT LOWER LIMB Status: Acute (4) Chronic pain Code(s): G89.29 - OTHER CHRONIC PAIN Status: Acute (5) Depression Code(s): F32.9 - MAJOR DEPRESSIVE DISORDER, SINGLE EPISODE, UNSPECIFIED Status : Acute (6) H/O fall Code(s): Z91.81 - HISTORY OF FALLING Status: Acute (7) HLD (hyperlipidemia) Code(s): E78.5 - HYPERLIPIDEMIA, UNSPECIFIED Status: Acute (8) HTN (hypertension) Code(s): I10 - ESSENTIAL (PRIMARY) HYPERTENSION Status: Acute (9) Obesity Code(s): E66.9 - OBESITY, UNSPECIFIED Status: Acute (10) Spinal stenosis Code(s): M48.00 - SPINAL STENOSIS, SITE UNSPECIFIED Status: Acute - Plan Plan: Acute encephalopathy, resolved H/o Fall, weakness, urinary incontinence - 6 month decline per family - Pt is too large in girth for MRI. Furthermore, he reports he cannot breathe when he lays flat. Note, he does not desat when he lays flat. - PT/OT consulted. Recommend SNF vs Rehab - Neurology, Dr. Shin consulted. Requested EEG which has been ordered Acute hypercapneic respiratory failure - used BiPAP at night. - Pulm consulted. Appreciate recs. Less suspicious for OHS. Recommends decreasing sedative/narcotics. Recommends sleep study. - [facility] Neurosurg PA, they do not have a reason for cervical problem causing respiratory depression. LLE cellulitis, improving -Continue home doxycycline CAD -Cont aspirin, losartan, metoprolol HTN -Cont losartan, metoprolol HLD -Cont simvastatin Depression -Cont celexa BPH -Cont tamsulosin Chronic pain 2/2 spinal stenosis - Held narcotics, trazodone, ambien, and amitriptyline overnight - continued diclofenac and tylenol Diet: HH VTE ppx: lovenox Code Status: Full PCP: Dr. Weldon Dispo: admitted to [facility], may consider d/c once CM evaluates and determines placement options. PCP thinks pt needs placement for optimal treatment. Addendum - Attending - Attending Attestation Date/Time: 12/16/19 4394 I personally evaluated the patient and discussed the management with Dr. Carrasquillo. I agree with the History, Examination, Assessment and Plan documented above with any addition or exceptions noted below. Patinet here for hypercapnia, encephalopathy, and oversedation from prescription meds. He is on and off Bipap, but mentation cleared. Needs de- escalation of therapy and in dire need of sleep study per pulm. Will slowly re- introduce some of his pain meds but minimize as best as possible.
[2019-12-16] MEDS: Losartan 25 MG TAB PO SCH (09:04)
[2019-12-16] MEDS: Vit A,C & E/Lutein/Minerals Tablet PO SCH (09:04)
[2019-12-16] MEDS: Aspirin 81 mg Enteric Coated Tablet PO SCH (09:04)
[2019-12-16] MEDS: Doxycycline 100 MG CAP PO SCH ×2 (09:04→20:59)
[2019-12-16] MEDS: Citalopram 20 MG TAB PO SCH ×2 (09:04→21:00)
[2019-12-16] MEDS: Enoxaparin Sodium 40 MG/0.4 ML SYRINGE SC SCH (09:05)
--- NOTE | 2019-12-16 09:31 | PRG ---
DATE OF SERVICE: 12/16/2019 SUBJECTIVE: The patient is actually doing better. He slept in a chair with the BiPAP at night. OBJECTIVE: VITAL SIGNS: Temperature 97.9, pulse 91, blood pressure 121/81, O2 saturation 100% on 2 L. HEENT: Unremarkable. NECK: No adenopathy or JVD. LUNGS: Clear. CARDIAC: S1 and S2. Regular. ABDOMEN: Soft. EXTREMITIES: No edema. ASSESSMENT: 1. Chronic back pain. 2. Likely hypoventilation from excess narcotic and sleep medication. 3. Probable underlying sleep apnea, but not obesity hypoventilation syndrome. PLAN: Again would be very careful with pain medications. Would consider pain management intervention in this patient. Would definitely not give him trazodone, Ambien, and amitriptyline altogether at night. He will need a sleep study as an outpatient. 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 He is stable for transfer out to the floor. Job ID: [id number]
--- NOTE | 2019-12-16 13:30 | PDOC.HOSPP ---
- Subjective Encounter Date: 12/16/19 Subjective: NEUROLOGY PROGRESS NOTE Patient doing much better. Alert and following commands appropriately. - Objective Vital Signs & Weight: Vital Signs (12 hours) Temp Pulse Pulse Pulse Resp BP BP 12/16/19 11:17 97.2 F L 12/16/19 08:55 99 101 H 133/90 113/67 12/16/19 08:00 12/16/19 07:10 98.0 F 12/16/19 04:00 97.9 F 85 20 12/16/19 02:53 BP Pulse Ox 12/16/19 11:17 12/16/19 08:55 12/16/19 08:00 100 12/16/19 07:10 12/16/19 04:00 121/81 100 12/16/19 02:53 99 Weight Admit Weight 290 lb 9.108 oz Weight 290 lb 9.108 oz Most Recent Monitor Data Heart Rate from ECG 84 NIBP 93/64 NIBP BP-Mean 73 Respiration from ECG 24 SpO2 97 I&O: 12/15/19 12/16/19 12/17/19 06:59 06:59 06:59 Intake Total 680 Output Total 350 Balance 330 Result Diagrams: 12/16/19 03:13 12/16/19 03:13 Radiology Reviewed by me: Yes EKG Reviewed by me: Yes Hospitalist ROS - Review of Systems Constitutional: denies: fever, chills, sweats, weakness, malaise, other Eyes: denies: pain, vision change, conjunctivae inflammation, eyelid inflammation, redness, other ENT: denies: ear pain, ear discharge, nose pain, nose discharge, nose congestion , mouth pain, mouth swelling, throat pain, throat swelling, other Respiratory: denies: cough, dry, shortness of breath, hemoptysis, SOB with excertion, pleuritic pain, sputum, wheezing, other Cardiovascular: denies: chest pain, palpitations, orthopnea, paroxysmal noc. dyspnea, edema, light headedness, other Gastrointestinal: denies: nausea, vomiting, abdominal pain, diarrhea, constipation, melena, hematochezia, other Genitourinary: denies: dysuria, frequency, incontinence, hematuria, retention, other Musculoskeletal: denies: neck pain, shoulder pain, arm pain, back pain, hand pain, leg pain, foot pain, other Skin: denies: rash, lesions, mary, bruising, other Neurological: denies: weakness, numbness, incoordination, change in speech, confusion, seizures, other - Medication Medications: Active Medications Generic Name Dose Route Start Last Admin Trade Name Haseebq PRN Reason Stop Dose Admin Aspirin 81 mg 12/16/19 09:00 12/16/19 09:04 Ecotrin PO 81 mg DAILY KHADIJAH Administration Citalopram Hydrobromide 20 mg 12/15/19 21:00 12/16/19 09:04 Celexa PO 20 mg BID KHADIJAH Administration Diclofenac Sodium 75 mg 12/15/19 21:00 12/16/19 09:09 Diclofenac Sodium PO 75 mg BID KHADIJAH Administration Doxycycline Hyclate 100 mg 12/15/19 21:00 12/16/19 09:04 Vibramycin PO 100 mg BID KHADIJAH Administration Enoxaparin Sodium 40 mg 12/15/19 09:00 12/16/19 09:05 Lovenox SC 40 mg 0900 KHADIJAH Administration Losartan Potassium 100 mg 12/16/19 09:00 12/16/19 09:04 Cozaar PO 100 mg DAILY KHADIJAH Administration Metoprolol Succinate 50 mg 12/16/19 09:00 12/16/19 09:04 Toprol Xl PO 50 mg DAILY KHADIJAH Administration Multivitamins/Minerals 1 tab 12/16/19 09:00 12/16/19 09:04 Ocuvite With Lutein PO 1 tab DAILY KHADIJAH Administration Pantoprazole Sodium 40 mg 12/16/19 09:00 12/16/19 09:04 Protonix PO 40 mg DAILY KHADIJAH Administration Simvastatin 20 mg 12/15/19 21:00 12/15/19 20:37 Zocor PO 20 mg HS KHADIJAH Administration Tamsulosin HCl 0.4 mg 12/15/19 21:00 12/15/19 20:37 Flomax PO 0.4 mg HS KHADIJAH Administration - Exam General Appearance: awake alert Eye: PERRL, anicteric sclera ENT: normocephalic atraumatic Neck: supple Heart: irregular Respiratory: CTAB Gastrointestinal: soft Extremities: no cyanosis, no clubbing, no edema Skin: normal turgor, no lesions, no rashes Neurological: cranial nerve grossly intact, normal sensation to touch, no weakness, no focal deficits, no new deficit Musculoskeletal: normal tone, normal strength Psychiatric: normal affect, normal behavior, A&O x 3, oriented to person, oriented to place, oriented to time Hosp A/P (1) Altered mental status Code(s): R41.82 - ALTERED MENTAL STATUS, UNSPECIFIED Status: Acute (2) Chronic pain Code(s): G89.29 - OTHER CHRONIC PAIN Status: Acute (3) Depression Code(s): F32.9 - MAJOR DEPRESSIVE DISORDER, SINGLE EPISODE, UNSPECIFIED Status : Acute (4) H/O fall Code(s): Z91.81 - HISTORY OF FALLING Status: Acute (5) HLD (hyperlipidemia) Code(s): E78.5 - HYPERLIPIDEMIA, UNSPECIFIED Status: Acute (6) HTN (hypertension) Code(s): I10 - ESSENTIAL (PRIMARY) HYPERTENSION Status: Acute (7) Obesity Code(s): E66.9 - OBESITY, UNSPECIFIED Status: Acute (8) Spinal stenosis Code(s): M48.00 - SPINAL STENOSIS, SITE UNSPECIFIED Status: Acute - Plan PT/OT, speech therapy 59 year old consulted for altered mental status which is now resolved. Most likely due to pain medications/ HCT negative for acute intracranial pathology. EEG did not show any evidence of seizures. Neurochecks every 4 hours. Continue home medications. PT/OT/Specch. Continue medical management per primary team.
[2019-12-16] MEDS ORDERED: HYDROcodone/Acetaminophen 7.5/325 mg Tablet PO PRN (17:37)
--- NOTE | 2019-12-16 17:37 | PDOC.BPN ---
- Brief Progress Note RN paged to say daughter was in pt's room and wanting to discuss plan of care. [facility] [employer] [facility] went to see pt. Pt and daughter frustrated with inability to obtain imaging and get neck surgery , which is great cause of pt's neck pain and psychological stress. They are also frustrated with different specialists and staff being rude to them. Daughter reports the patient is even to the point of not wanting to live if he cannot have a neck surgery. Clarified barriers to the care patient desires which include: 1. Inability to obtain MRI, which is needed prior to neck surgery a. Pt's girth/not fitting in MRI machine, necessitating open MRI in [place] b. Pt's inability to lay flat due to breathing problems, necessitating sedation during MRI c. Inability to obtain MRI at [facility] since [facility] d/c'd this protocol 2 years ago and since [facility] is restricted due to coronavirus precautions d. Delay overall in obtaining open MRI w/ sedation 2/2 coronavirus restrictions 2. Obtaining cardiac/pulmonary clearance for surgery a. Pt clearly improving on BiPAP but per Dr. Weldon, could not tolerate/ complete sleep study. 3. Recurrent altered mental status, lack of adequate sleep 2/2 undiagnosed ARSALAN, multiple sedating medications. Discussed our current plan w/ patient considering above barriers: 1. Pain control. Now that pt's mentation is improved, we will resume [place]. 2. Improvement in sleep. Continue BiPAP at night and while napping. Avoid ambien , trazodone, and amitriptyline to simplify medication regimen and avoid acute encephalopathy. 3. Pursuing placement. Family desires to pursue rehab with understanding approval through [employer] may take well into next week. 4. Pursuing PT/OT so pt will be optimized for surgery and able to travel to [place] for open MRI w/ sedation. 5. Re-evaluation by Neurosurgery s/p MRI for further recommendations as to surgical mgmt. Pt and daughter agree with this plan and understand it will take much time given the complexity of the situation. Time spent : 45 min.
--- NOTE | 2019-12-16 19:18 | PQF ---
DATE: 12-16-19 ATTN: DR. MEGHAN AGUILAR Please exercise your independent, professional judgment in responding to the clarification form. Clinical indicators are provided on the bottom of this form for your review Please check appropriate box(s): [X] Encephalopathy: Etiology: [ ] Metabolic [ ] Toxic [ ] Hypoxic [ ] Other (please specify) [ ] Transient Alteration of Awareness [ ] Other diagnosis [x] Unable to determine: pt has unclear cause of his encephalopathy that may be multifactorial. Causes include narcotic/inappropriate usage at home (UDS here only + for benzos which were given in ED) combined with probably ARSALAN which caused oxygen desaturation after admission and improved on BiPAP. However, hypoxia alone is unlikely to be the sole cause of his encephalopathy. In addition, please specify: Present on Admission (POA): [x] Yes [ ] No [ ] Unable to determine For continuity of documentation, please document condition throughout progress notes and discharge summary. Thank You. CLINICAL INDICATORS - SIGNS / SYMPTOMS / LABS / RESULTS AND LOCATION IN EMR: ER DX 12-14-19: ALTERED MENTAL STATUS H&P: 12-14-19: ACUTE ENCEPHALOPATHY PN DR. AGUILAR 12-15-19: ACUTE ENCEPHALOPATHY, I SUSPECT HIS ENCEPHALOPATHY IS 2/2 ARSALAN/OBESITY HYPOVENTILATION AND SEDATIVE EFFECT FROM HIS NARCOTICS. NEUROLOGY CONSULTED. DR. NOVOA 12-16-19: AMS WHICH IS NOW RESOLVED. MOST LIKELY D/T PAIN MEDICATIONS, NEURO Q4, EEG HCT NEGATIVE RISK FACTORS / RESULTS AND LOCATION IN EMR: PN DR. AGUILAR 12-15-19: ACUTE ENCEPHALOPATHY, I SUSPECT HIS ENCEPHALOPATHY IS 2/2 ARSALAN/OBESITY HYPOVENTILATION AND SEDATIVE EFFECT FROM HIS NARCOTICS TREATMENTS / RESULTS AND LOCATION IN EMR: DR. NOVOA 12-16-19: AMS WHICH IS NOW RESOLVED. MOST LIKELY D/T PAIN MEDICATIONS, NEURO Q4, EEG HCT NEGATIVE (This form is maintained as a part of the permanent medical record) 2014 [employer]. All Rights Reserved [email or web address] [email or web address] [facility]
[2019-12-16] MEDS: Tamsulosin HCl 0.4 MG CAP PO SCH (20:59)
[2019-12-16] MEDS: Atorvastatin Calcium 10 MG TAB PO SCH (21:00)
--- NOTE | 2019-12-17 06:18 | PDOC.FM ---
- Subjective Subjective: Sleeping comfortably on BiPAP at settings of 14/6. Got [place] at 1 AM and per RN SBP went to 80. Monitored and self-resolved. - Objective MAR Reviewed: Yes Vital Signs & Weight: Vital Signs (12 hours) Temp Pulse Resp BP Pulse Ox 12/17/19 04:00 97.7 F 76 18 124/80 100 12/17/19 03:49 70 12 100 12/17/19 00:00 97.9 F 86 18 96/66 100 12/16/19 22:54 67 14 100 12/16/19 19:33 100 12/16/19 19:29 98.5 F Weight Admit Weight 131.8 kg Weight 131.8 kg Most Recent Monitor Data Heart Rate from ECG 65 NIBP 119/84 NIBP BP-Mean 95 Respiration from ECG 13 SpO2 99 I&O: 12/15/19 12/16/19 12/17/19 06:59 06:59 06:59 Intake Total 680 1320 Output Total 350 225 Balance 330 1095 Result Diagrams: 12/16/19 03:13 12/16/19 03:13 Phys Exam - Physical Examination Constitutional: NAD Respiratory: no wheezing, clear to auscultation bilateral poor air movement Cardiovascular: RRR Gastrointestinal: soft Musculoskeletal: edema present (trace on L foot/ankle, improved.) Deviation from normal: mild erythema on L foot, stable, trace edema as compared to R Dx/Plan (1) BPH (benign prostatic hyperplasia) Code(s): N40.0 - BENIGN PROSTATIC HYPERPLASIA WITHOUT LOWER URINRY TRACT SYMP Status: Acute (2) CAD (coronary artery disease) Code(s): I25.10 - ATHSCL HEART DISEASE OF [place] CORONARY ARTERY W/O ANG PCTRS Status: Acute (3) Cellulitis of left foot Code(s): L03.116 - CELLULITIS OF LEFT LOWER LIMB Status: Acute (4) Chronic pain Code(s): G89.29 - OTHER CHRONIC PAIN Status: Acute (5) Depression Code(s): F32.9 - MAJOR DEPRESSIVE DISORDER, SINGLE EPISODE, UNSPECIFIED Status : Acute (6) H/O fall Code(s): Z91.81 - HISTORY OF FALLING Status: Acute (7) HLD (hyperlipidemia) Code(s): E78.5 - HYPERLIPIDEMIA, UNSPECIFIED Status: Acute (8) HTN (hypertension) Code(s): I10 - ESSENTIAL (PRIMARY) HYPERTENSION Status: Acute (9) Obesity Code(s): E66.9 - OBESITY, UNSPECIFIED Status: Acute (10) Spinal stenosis Code(s): M48.00 - SPINAL STENOSIS, SITE UNSPECIFIED Status: Acute - Plan Plan: Acute encephalopathy, resolved H/o Fall, weakness, urinary incontinence - 6 month decline per family - Pt is too large in girth for MRI. Furthermore, he reports he cannot breathe when he lays flat. Note, he does not desat when he lays flat. - PT/OT consulted. Recommend SNF vs Rehab. Family wishes to pursue rehab at [facility]. - Neurology, Dr. Shin consulted. EEG normal. - CM consulted, appreciate help w/ rehab referral. - no clinical utility of CT c-spine or lumbar spine at this point. Pt needs open MRI under sedation which can only be accomplished outpatient. This was discussed in detail and at length with patient, daughter, and Acute hypercapneic respiratory failure - use BiPAP at night. - Pulm consulted. Appreciate recs. Less suspicious for OHS. Recommends decreasing sedative/narcotics. Recommends sleep study. Pt has tried sleep study in past twice and never fell asleep. - [facility] PA, they do not have a reason for cervical problem causing respiratory depression. They feel cauda equina less likely. LLE cellulitis, improving -Continue home doxycycline CAD -Cont aspirin, losartan, metoprolol HTN -Cont losartan, metoprolol HLD -Cont simvastatin Depression Hx of Suicide attempt 14 years ago by medication overdose -Recommend outpatient psych therapy support and adjustment of psych medications as PCP sees fit. -Cont celexa BPH -Cont tamsulosin Chronic pain 2/2 spinal stenosis - Held trazodone, ambien, and amitriptyline - continued diclofenac and tylenol - mentation improved. Restarted [place] at 5mg. Became hypotensive with home dose of 7.5mg. Diet: HH VTE ppx: lovenox Code Status: Full PCP: Dr. Weldon Dispo: admitted to [facility], continue BiPAP at night and as needed during naps. Rehab placement pending. Addendum - Attending - Attending Attestation Date/Time: 12/17/19 1036 I personally evaluated the patient and discussed the management with Dr. Carrasquillo. I agree with the History, Examination, Assessment and Plan documented above with any addition or exceptions noted below. Patient stable. Reintroducing low dose narcotics for pain. Continue Bipap with sleep. Rehab placement.
[2019-12-17] MEDS: Aspirin 81 mg Enteric Coated Tablet PO SCH (08:41)
[2019-12-17] MEDS: Doxycycline 100 MG CAP PO SCH ×2 (08:42→20:50)
[2019-12-17] MEDS: Enoxaparin Sodium 40 MG/0.4 ML SYRINGE SC SCH (08:42)
[2019-12-17] MEDS: Citalopram 20 MG TAB PO SCH ×2 (08:42→20:50)
[2019-12-17] MEDS: Losartan 25 MG TAB PO SCH (08:43)
[2019-12-17] MEDS: Vit A,C & E/Lutein/Minerals Tablet PO SCH (08:44)
[2019-12-17] MEDS ORDERED: HYDROcodone/Acetaminophen 5/325 mg Tablet PO SCH (12:00)
--- NOTE | 2019-12-17 15:55 | PRG ---
DATE OF SERVICE: 12/17/2019 HISTORY OF PRESENT ILLNESS: Mr. Sigala is a 59-year-old gentleman with severe obesity and history of chronic neck pain due to degenerative osteoarthritis. He reports a diagnosis of spinal stenosis and has had some difficulty with weakness and falls. He has not had any difficulty with incontinence. He is felt to be a poor surgical candidate in the past due to his obesity and difficulty in radiographic imaging. Since admission to the hospital, the patient has had an episode of mild altered mentation at which time his blood gas included pH 7.27 with CO2 of 65. He has been placed on BiPAP and has tolerated that well. The patient reports that he was admitted to [facility] within the past 6 months. They tried to do a sleep study while he was admitted, but he states that he was never able to sleep. He states that he is unable to lie supine even for a few moments. He states that his sleep quality is extremely poor at home even while sleeping upright. Surprisingly, he has done very well here in the hospital with BiPAP therapy. PHYSICAL EXAMINATION: VITAL SIGNS: Blood pressure is 76/56 with heart rate of 78. Even at that level, the patient is able to get up and ambulate in the room without symptoms of orthostasis. His admitting weight is 290 pounds, and he has a BMI of 40.5. GENERAL: He is an obese 59-year-old male. He has no hypersomnolence during my encounter. NECK: Extremely enlarged. Tongue is enlarged. Chin is slightly micrognathic. LUNGS: Clear to auscultation. HEART: Regular rate and rhythm. ABDOMEN: Morbidly obese without organomegaly. EXTREMITIES: He has 1+ edema. LABORATORY: His initial blood gas is as described above. Followup blood gas on BiPAP included pH 7.33 with CO2 of 51 and pO2 of 80. His bicarbonate is normal to only trivially elevated. His bicarbonate on his chemistry panel is normal. IMPRESSION: 1. Back and neck pain as well as falls with the patient reported spinal stenosis. Unfortunately, he has not been able to receive CT or MRI due to report of extreme breathlessness when supine even for moments. 2. Morbid obesity. 3. Possible obstructive sleep apnea. The patient has previously undergone 2 attempted sleep studies without evidence of sleep. According to the patient, these were done while he was admitted to [facility]. He may actually be a better candidate for home sleep study so that he can sleep in position more of comfort for him. One additional option would be to try to get an arterial blood gas on no support to evaluate whether he would meet criteria for hypercapnia and the use of noninvasive Trilogy device. PLAN: The patient certainly needs to be on exercise and weight loss regimen. I think that intubating and sedating him for an MRI is an extreme measure and would suggest a bit of difficulty in getting his surgery and successfully treating him thereafter. I think it might be reasonable to get an arterial blood gas on room air while awake to see if he meets hypercapnia criteria for home noninvasive ventilator use. Despite his hypotension, the patient is free of symptoms. From a pulmonary perspective, he could be discharged to a rehab facility when approved. Job ID: [id number]
[2019-12-17] MEDS ORDERED: Sodium Chloride 0.9% 500 ML IV SCH (16:30)
[2019-12-17] MEDS: Tamsulosin HCl 0.4 MG CAP PO SCH (20:50)
[2019-12-17] MEDS: Atorvastatin Calcium 10 MG TAB PO SCH (20:50)
[2019-12-18] MEDS: Acetaminophen 325 MG TAB PO PRN ×3 (01:50→17:00)
--- NOTE | 2019-12-18 06:19 | PDOC.FM ---
- Subjective Subjective: Pt sleeping on BiPAP this AM, settings at 14/6. Had issues with lightheadedness and hypotension yesterday which seemed orthostatic in nature according to PT. When he stood, he felt lightheaded. He had low BPs earlier in the day while sitting and asymptomatic. Encouraged to drink water and gave 500mL bolus w/ mild improvement in BP. - Objective MAR Reviewed: Yes Vital Signs & Weight: Vital Signs (12 hours) Temp Pulse Resp BP Pulse Ox 12/18/19 04:00 97.6 F 12/18/19 02:55 69 15 100 12/18/19 00:00 98.6 F 76 18 95/56 L 100 12/17/19 22:34 72 16 100 12/17/19 20:17 98.5 F 75 18 100/53 L 99 12/17/19 19:40 99 Weight Admit Weight 131.8 kg Weight 131.8 kg Most Recent Monitor Data Heart Rate from ECG 62 NIBP 111/64 NIBP BP-Mean 79 Respiration from ECG 15 SpO2 100 I&O: 12/16/19 12/17/19 12/18/19 06:59 06:59 06:59 Intake Total 680 1680 2960 Output Total 232 989 2972 Balance 089 788 7542 Result Diagrams: 12/16/19 03:13 12/16/19 03:13 Phys Exam - Physical Examination Constitutional: NAD Respiratory: no wheezing, clear to auscultation bilateral Cardiovascular: RRR Deviation from normal: LLE decreased erythema and appearing improved. Dx/Plan (1) BPH (benign prostatic hyperplasia) Code(s): N40.0 - BENIGN PROSTATIC HYPERPLASIA WITHOUT LOWER URINRY TRACT SYMP Status: Acute (2) CAD (coronary artery disease) Code(s): I25.10 - ATHSCL HEART DISEASE OF [place] CORONARY ARTERY W/O ANG PCTRS Status: Acute (3) Cellulitis of left foot Code(s): L03.116 - CELLULITIS OF LEFT LOWER LIMB Status: Acute (4) Chronic pain Code(s): G89.29 - OTHER CHRONIC PAIN Status: Acute (5) Depression Code(s): F32.9 - MAJOR DEPRESSIVE DISORDER, SINGLE EPISODE, UNSPECIFIED Status : Acute (6) H/O fall Code(s): Z91.81 - HISTORY OF FALLING Status: Acute (7) HLD (hyperlipidemia) Code(s): E78.5 - HYPERLIPIDEMIA, UNSPECIFIED Status: Acute (8) HTN (hypertension) Code(s): I10 - ESSENTIAL (PRIMARY) HYPERTENSION Status: Acute (9) Obesity Code(s): E66.9 - OBESITY, UNSPECIFIED Status: Acute (10) Spinal stenosis Code(s): M48.00 - SPINAL STENOSIS, SITE UNSPECIFIED Status: Acute - Plan Plan: Acute encephalopathy, resolved H/o Fall, weakness, urinary incontinence - 6 month decline per family. May very well be related to orthostatic hypotension along w/ home use of narcotics. - Pt is too large in girth for MRI. - PT/OT consulted. Recommend SNF vs Rehab. Family wishes to pursue rehab at [facility]. - Neurology, Dr. Shin consulted. EEG normal. No further workup, mental status improved. - CM consulted, appreciate help w/ rehab referral. - no clinical utility of CT c-spine or lumbar spine at this point. Pt needs open MRI under sedation which can only be accomplished outpatient. This was discussed in detail and at length with patient, daughter, and Acute hypercapneic respiratory failure - use BiPAP at night and when sleeping. - Pulm consulted. Appreciate recs. Less suspicious for OHS. Recommends decreasing sedative/narcotics. Recommends sleep study. Pt has tried sleep study in past twice and never fell asleep. - [facility] PA, they do not have a reason for cervical problem causing respiratory depression. They feel cauda equina less likely. LLE cellulitis, improving -Continue home doxycycline for total of 10 day course started on this admission CAD -Cont aspirin, losartan, metoprolol HTN -Cont losartan, metoprolol HLD -Cont simvastatin Depression Hx of Suicide attempt 14 years ago by medication overdose -Recommend outpatient psych therapy support and adjustment of psych medications as PCP sees fit. -Cont celexa BPH -Cont tamsulosin Chronic pain 2/2 spinal stenosis - Held trazodone, ambien, and amitriptyline - continued diclofenac and tylenol - mentation improved. Restarted [place] at 5mg prn. Of note, pt has not been asking for [place] very often while here. Diet: HH VTE ppx: lovenox Code Status: Full PCP: Dr. Weldon Dispo: admitted to [facility], continue BiPAP at night and as needed during naps. Rehab placement pending. Addendum - Attending - Attending Attestation Date/Time: 12/18/19 6659 I personally evaluated the patient and discussed the management with Dr. Carrasquillo. I agree with the History, Examination, Assessment and Plan documented above with any addition or exceptions noted below. Patient here for oversedation and respiratory failure 2/2 medication effect/ sedation. He has had improved mentation and wakefulness since being de- escalated from sedatives and opiates. He is utilizing BIPAP during naps and QHS. He would benefit from home BIPAP therapy but cannot tolerate sleep study in the past. Pulm on board. Holding BP meds today due to hypotension. Awaiting rehab placement.
[2019-12-18 07:55] LABS: Actual Bicarbonate (HCO3a) 32.1 mEq/L (22-28); Base Excess (BEa) 6.1 mEq/L (-2.0 to +3.0); Calcium, Ionized 1.18 mmol/L (1.12-1.30); Carboxyhemoglobin (COHb) 1.2 gm% (0.0-3.0); Hemoglobin (Hb) 13.9 g/dL (14.0-18.0); O2 Tension (PaO2), arterial 65.2 mmHg (> 80.0); Potassium - ABG Lab 4.06 mmol/L (3.70-5.30); pH, Arterial 7.41 (7.35-7.45)
[2019-12-18 07:57] LABS: Puncture Site RRA
[2019-12-18] MEDS: Enoxaparin Sodium 40 MG/0.4 ML SYRINGE SC SCH (09:43)
[2019-12-18] MEDS: Doxycycline 100 MG CAP PO SCH ×2 (09:44→20:09)
[2019-12-18] MEDS: Citalopram 20 MG TAB PO SCH ×2 (09:44→20:09)
[2019-12-18] MEDS: Vit A,C & E/Lutein/Minerals Tablet PO SCH (09:44)
[2019-12-18] MEDS: Aspirin 81 mg Enteric Coated Tablet PO SCH (09:44)
[2019-12-18] MEDS: Losartan 25 MG TAB PO SCH (10:08)
--- NOTE | 2019-12-18 12:34 | PRG ---
DATE OF SERVICE: 12/18/2019 SUBJECTIVE: Mr. Sigala states that he is feeling much better. He was tolerant of BiPAP during the night and used it from 9:00 p.m. to approximately 7:00 a.m. He had 2 awakenings, both brief. He feels that this is a type of device that he would be able to tolerate at home. PHYSICAL EXAMINATION: VITAL SIGNS: Blood pressure 125/72, heart rate is 98, respiratory rate 24, saturation 98%. GENERAL: He is an obese gentleman with a very enlarged neck. He is sitting in the bedside chair. He is awake and alert. HEENT: Shows no abnormality except for his enlarged tongue and enlarged neck. LUNGS: Show rhonchi, but no wheezing or rales. HEART: Regular rate and rhythm. ABDOMEN: Morbidly obese. EXTREMITIES: He has 2+ edema. LABORATORY DATA: Blood gas this morning on room air shows pH 7.41, pCO2 of 52, pO2 of 65, and bicarbonate 32. IMPRESSION: 1. Encephalopathy probably secondary to hypercapnic respiratory failure, resolved. 2. Probable obstructive sleep apnea. The patient has had previous sleep study attempted, but did not sleep, probably because he has difficulty lying supine. 3. Chronic back and neck pain. 4. Obesity. RECOMMENDATIONS: The patient's room air blood gas does not show sufficient resting hypercapnia to qualify for home trilogy device. He would need a sleep study to qualify, but might do better if he were to have a home study so that it could be done in that position and timing of his choice. Clearly, he needs to participate in exercise and weight loss program. Medically, he is stable for transfer to the floor and probable discharge soon thereafter. Job ID: [id number]
[2019-12-18] MEDS: HYDROcodone/Acetaminophen 5/325 mg Tablet PO PRN (19:42)
[2019-12-18] MEDS: Tamsulosin HCl 0.4 MG CAP PO SCH (20:09)
[2019-12-18] MEDS: Atorvastatin Calcium 10 MG TAB PO SCH (20:09)
[2019-12-19] MEDS: Acetaminophen 325 MG TAB PO PRN ×2 (02:25→22:28)
[2019-12-19] MEDS: HYDROcodone/Acetaminophen 5/325 mg Tablet PO PRN ×2 (06:46→20:31)
--- NOTE | 2019-12-19 08:25 | PDOC.FM ---
- Subjective Subjective: NAEO. VSS. Reports feeling a little better this AM but woke up ~Q2HRs with Bipap use overnight. Denies any PND. Endorses some neck pain on exam but otherwise no complaints. - Objective MAR Reviewed: Yes Vital Signs & Weight: Vital Signs (12 hours) Temp Pulse Resp Pulse Ox 12/19/19 07:36 94 L 12/19/19 07:09 98.1 F 12/19/19 04:01 98.1 F 87 18 94 L 12/19/19 01:11 73 13 100 12/18/19 23:59 98 F 75 16 98 Weight Admit Weight 131.8 kg Weight 131.8 kg Most Recent Monitor Data Heart Rate from ECG 84 NIBP 123/80 NIBP BP-Mean 94 Respiration from ECG 15 SpO2 90 I&O: 12/18/19 12/19/19 12/20/19 06:59 06:59 06:59 Intake Total 2960 780 Output Total 1100 1000 Balance 1860 -220 Result Diagrams: 12/16/19 03:13 12/16/19 03:13 Phys Exam - Physical Examination Constitutional: NAD HEENT: moist MMs Neck: supple, full ROM Respiratory: no wheezing, no rales, no rhonchi, clear to auscultation bilateral Cardiovascular: RRR, no significant murmur obese Musculoskeletal: edema present (mild, nonpitting edema and erythema in LLE) Neurological: non-focal, moves all 4 limbs Psychiatric: normal affect, A&O x 3 Skin: no rash, normal turgor Dx/Plan (1) Altered mental status Code(s): R41.82 - ALTERED MENTAL STATUS, UNSPECIFIED Status: Resolved (2) BPH (benign prostatic hyperplasia) Code(s): N40.0 - BENIGN PROSTATIC HYPERPLASIA WITHOUT LOWER URINRY TRACT SYMP Status: Chronic (3) CAD (coronary artery disease) Code(s): I25.10 - ATHSCL HEART DISEASE OF [place] CORONARY ARTERY W/O ANG PCTRS Status: Chronic (4) Cellulitis of left foot Code(s): L03.116 - CELLULITIS OF LEFT LOWER LIMB Status: Acute (5) Chronic pain Code(s): G89.29 - OTHER CHRONIC PAIN Status: Chronic (6) Depression Code(s): F32.9 - MAJOR DEPRESSIVE DISORDER, SINGLE EPISODE, UNSPECIFIED Status : Chronic (7) H/O fall Code(s): Z91.81 - HISTORY OF FALLING Status: Chronic (8) HLD (hyperlipidemia) Code(s): E78.5 - HYPERLIPIDEMIA, UNSPECIFIED Status: Chronic (9) HTN (hypertension) Code(s): I10 - ESSENTIAL (PRIMARY) HYPERTENSION Status: Chronic (10) Obesity Code(s): E66.9 - OBESITY, UNSPECIFIED Status: Chronic (11) Spinal stenosis Code(s): M48.00 - SPINAL STENOSIS, SITE UNSPECIFIED Status: Chronic - Plan Plan: Acute encephalopathy, resolved H/o Fall, weakness, urinary incontinence - 6 month decline per family. May very well be related to orthostatic hypotension along w/ home use of narcotics. - Pt is too large in girth for MRI. - PT/OT on board & recommend SNF vs Rehab. Family wishes to pursue rehab at [facility]. Placement pending. - Neurology, Dr. Shin consulted. EEG normal. No further workup, mental status improved. - No clinical utility of CT c-spine or lumbar spine at this point. Pt needs open MRI under sedation which can only be accomplished outpatient. This was discussed in detail and at length with patient, daughter, and and admitting team. Acute on chronic hypercapneic respiratory failure, resolved - Continue use of BiPAP at night and when sleeping per pulhilario recellen. Recommends sleep study at home to assist with getting home machine as ABG from yesterday does not qualify patient for home trilogy. Will transition to CPAP for transition to floor if ok with pulmonology & have rehab assist with getting a home machine upon d/c if approved today. - [facility] PA, they do not have a reason for cervical problem causing respiratory depression. They feel cauda equina less likely. LLE cellulitis, improving - Continue doxycycline for total of 10 day course. CAD - Cont aspirin, losartan, metoprolol HTN - Cont losartan, metoprolol HLD - Cont simvastatin Depression Hx of Suicide attempt 14 years ago by medication overdose - Recommend outpatient psych therapy support and adjustment of psych medications as PCP sees fit. - Cont celexa BPH - Cont tamsulosin Chronic pain 2/2 spinal stenosis - Held trazodone, ambien, and amitriptyline - continued diclofenac and tylenol - mentation improved. Restarted [place] at 5mg Q8H prn. KHADIJAH & PRN bowel regimen added today. Diet: HH VTE ppx: lovenox Code Status: Full PCP: Dr. Weldon Abx: [facility] (12/14- day #5) IVFs: SL Dispo: Transfer to the floor if on CPAP at night and as needed during naps. Rehab placement pending. Addendum - Attending - Attending Attestation Date/Time: 12/19/19 1041 I personally evaluated the patient and discussed the management with Dr. Sanches I agree with the History, Examination, Assessment and Plan documented above with any addition or exceptions noted below. 59 yo M admitted with acute encephalopathy suspected 2/2 ARSALAN. Will transition to CPAP and transfer to floor. Anticipate D/C to rehab once placement attained. Cont outpatient treatment cellulitus with doxycycline. Patient will need outpatient MRI under sedation to eval c-spine. RA Veloz
[2019-12-19] MEDS: Aspirin 81 mg Enteric Coated Tablet PO SCH (10:00)
[2019-12-19] MEDS: Vit A,C & E/Lutein/Minerals Tablet PO SCH (10:00)
[2019-12-19] MEDS: Enoxaparin Sodium 40 MG/0.4 ML SYRINGE SC SCH (10:00)
[2019-12-19] MEDS: Doxycycline 100 MG CAP PO SCH ×2 (10:00→20:32)
[2019-12-19] MEDS: Citalopram 20 MG TAB PO SCH ×2 (10:01→20:33)
[2019-12-19] MEDS ORDERED: Polyethylene Glycol 3350 17 GM Packet PO PRN (10:58)
--- NOTE | 2019-12-19 16:27 | EKG ---
Test Reason : Blood Pressure : / mmHG Vent. Rate : 071 BPM Atrial Rate : 071 BPM P-R Int : 164 ms QRS Dur : 090 ms QT Int : 388 ms P-R-T Axes : 027 035 043 degrees QTc Int : 421 ms Normal sinus rhythm Possible Anterolateral infarct (cited on or before 12-DEC-2019) Abnormal ECG When compared with ECG of 14-DEC-2019 18:25, ST elevation now present in Inferior leads T wave inversion no longer evident in Inferior leads Confirmed by KRISTINE BECKMAN, DR. Marie ([id number]) on 12/19/2019 4:26:57 PM Referred By: VIJAY Confirmed By:DR. Cynthia CARMONA MD
[2019-12-19] MEDS: Atorvastatin Calcium 10 MG TAB PO SCH (20:32)
[2019-12-19] MEDS: Docusate 100 MG CAP PO SCH (20:32)
[2019-12-19] MEDS: Tamsulosin HCl 0.4 MG CAP PO SCH (20:33)
--- NOTE | 2019-12-19 21:45 | PRG ---
DATE OF SERVICE: 12/19/2019 SUBJECTIVE: Maria L Sigala has no complaints. He puts on BiPAP whenever he wants to take a nap. He says he is feeling better. He is afebrile. OBJECTIVE: VITAL SIGNS: Blood pressure 167/89, respiratory rates in the teens to low 20s, heart rates in the 80s. LUNGS: Clear. HEART: Regular rhythm. ABDOMEN: Soft. IMPRESSION: Obesity hypoventilation syndrome. He did not sleep with his last sleep study. Home study might confirm the diagnosis, but then he will probably need an autotitrating device. It is very debatable whether this is appropriate, but given his inability to sleep in the sleep lab, it may be the best option. He is to contact my office when he is discharged, so we can set him up with a sleep study. Job ID: [id number]
[2019-12-20] MEDS: Acetaminophen 325 MG TAB PO PRN (02:28)
[2019-12-20] MEDS: HYDROcodone/Acetaminophen 5/325 mg Tablet PO PRN ×2 (05:04→14:36)
--- NOTE | 2019-12-20 05:34 | PDOC.FM ---
- Subjective Subjective: NAEO. Patient had a documented temp of 96.6F but denies any fever/chills, chest pain, cough, N/V/D/C. To have a cardiac stress this AM per the recs of his PCP for future neurosurgery. Reports he slept better last night with the Bipap. - Objective MAR Reviewed: Yes Vital Signs & Weight: Vital Signs (12 hours) Temp Pulse Resp Pulse Ox 12/20/19 05:08 78 16 97 12/20/19 03:59 96.6 F L 12/20/19 00:45 90 18 95 12/19/19 23:24 97.4 F L 12/19/19 20:40 90 17 97 12/19/19 20:00 96 12/19/19 19:20 98.5 F Weight Admit Weight 131.8 kg Weight 131.8 kg Most Recent Monitor Data Heart Rate from ECG 84 NIBP 124/74 NIBP BP-Mean 90 Respiration from ECG 15 SpO2 90 I&O: 12/18/19 12/19/19 12/20/19 06:59 06:59 06:59 Intake Total 2960 780 1210 Output Total 1100 1000 1950 Balance 4604 -219 -679 Result Diagrams: 12/16/19 03:13 12/16/19 03:13 Phys Exam - Physical Examination Constitutional: NAD HEENT: moist MMs Neck: supple, full ROM Respiratory: no wheezing, no rales, no rhonchi, clear to auscultation bilateral Cardiovascular: RRR, no significant murmur improvement in RLE erythema & edema compared to yesterday Neurological: non-focal, moves all 4 limbs Psychiatric: normal affect, A&O x 3 Skin: no rash, normal turgor Dx/Plan (1) Altered mental status Code(s): R41.82 - ALTERED MENTAL STATUS, UNSPECIFIED Status: Resolved (2) BPH (benign prostatic hyperplasia) Code(s): N40.0 - BENIGN PROSTATIC HYPERPLASIA WITHOUT LOWER URINRY TRACT SYMP Status: Chronic (3) CAD (coronary artery disease) Code(s): I25.10 - ATHSCL HEART DISEASE OF [place] CORONARY ARTERY W/O ANG PCTRS Status: Chronic (4) Cellulitis of left foot Code(s): L03.116 - CELLULITIS OF LEFT LOWER LIMB Status: Acute (5) Chronic pain Code(s): G89.29 - OTHER CHRONIC PAIN Status: Chronic (6) Depression Code(s): F32.9 - MAJOR DEPRESSIVE DISORDER, SINGLE EPISODE, UNSPECIFIED Status : Chronic (7) H/O fall Code(s): Z91.81 - HISTORY OF FALLING Status: Chronic (8) HLD (hyperlipidemia) Code(s): E78.5 - HYPERLIPIDEMIA, UNSPECIFIED Status: Chronic (9) HTN (hypertension) Code(s): I10 - ESSENTIAL (PRIMARY) HYPERTENSION Status: Chronic (10) Obesity Code(s): E66.9 - OBESITY, UNSPECIFIED Status: Chronic (11) Spinal stenosis Code(s): M48.00 - SPINAL STENOSIS, SITE UNSPECIFIED Status: Chronic (12) ARSALAN (obstructive sleep apnea) Code(s): G47.33 - OBSTRUCTIVE SLEEP APNEA (ADULT) (PEDIATRIC) Status: Suspected - Plan Plan: Acute encephalopathy, resolved - Neurology, Dr. Shin consulted. EEG normal. No further workup, mental status improved. Likely 2/2 polypharmacy as resolved with removal of multiple sedating agents. H/o Fall, weakness, urinary incontinence - 6 month decline per family. May very well be related to orthostatic hypotension along w/ home use of narcotics. - Pt is too large in girth for MRI. No clinical utility of CT c-spine or lumbar spine at this point per NS. Pt needs open MRI under sedation which can only be accomplished outpatient. This was discussed in detail and at length with patient , daughter, and and admitting team. - PT/OT on board & recommend SNF vs Rehab. Denied by rehab as patient will need to use his rehab days following his neurosurgery with Dr. Mock to be performed at a later date this year. Best option in the meantime will likely be home with home PT. Will touch base with CM today to assist with setting this up prior to d /c. Acute on chronic hypercapneic respiratory failure 2/2 ARSALAN vs. OHS, improving - Continue use of BiPAP at night and when sleeping per pulm recs. 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 in sleep lab to assist with getting home CPAP as ABG from 2 days ago did not qualify patient for a home trilogy. - [facility], they do not have a reason for cervical problem causing respiratory depression. They feel cauda equina less likely. Highly suspect ARSALAN vs. OHS per pulm. LLE cellulitis, improving - Continue doxycycline for total of 10 day course. CAD - Cont aspirin, losartan, metoprolol HTN - Cont losartan, metoprolol HLD - Cont simvastatin Depression Hx of Suicide attempt 14 years ago by medication overdose - Recommend outpatient psych therapy support and adjustment of psych medications as PCP sees fit. - Cont celexa BPH - Cont tamsulosin Chronic pain 2/2 spinal stenosis - Held trazodone, ambien, and amitriptyline - continued diclofenac, tylenol & Hospers at 5mg Q8H prn. KHADIJAH & PRN bowel regimen as well with narcotics. Diet: HH VTE ppx: lovenox Code Status: Full PCP: Dr. Weldon Abx: Benson (12/11- day #9) IVFs: SL Dispo: Cardiac stres test for cardiac clearance for NS per PCP recs. If WNLs, will likely d/c home with HH PT later today. To set up a sleep study as an outpatient. Per pulm, does not need a home machine to be discharged. Addendum - Attending - Attending Attestation Date/Time: 12/20/19 2013 I personally evaluated the patient and discussed the management with Dr. Sanches. I agree with the History, Examination, Assessment and Plan documented above with any addition or exceptions noted below. 59 yo M admitted with acute encephalopathy suspected 2/2 ARSALAN. Patient undergoing 2 day stress in order to pre-op patient for TBSI. Placement being worked on by Case Management, appreciate assistance, anticipate d/c with HH tomorrow after stress. Needs outpatient sleep study with pulm to eval for ARSALAN. Cont treatment for cellulitus. RA Veloz
[2019-12-20] MEDS: Aspirin 81 mg Enteric Coated Tablet PO SCH (09:19)
[2019-12-20] MEDS: Citalopram 20 MG TAB PO SCH ×2 (09:19→20:13)
[2019-12-20] MEDS: Vit A,C & E/Lutein/Minerals Tablet PO SCH (09:19)
[2019-12-20] MEDS: Doxycycline 100 MG CAP PO SCH ×2 (09:19→21:02)
[2019-12-20] MEDS: Docusate 100 MG CAP PO SCH ×2 (09:20→20:14)
[2019-12-20] MEDS: Enoxaparin Sodium 40 MG/0.4 ML SYRINGE SC SCH (09:20)
[2019-12-20] MEDS ORDERED: Regadenoson 0.4 MG/5 ML SYRINGE ONE (09:41)
--- NOTE | 2019-12-20 16:40 | PRG ---
DATE OF SERVICE: 12/20/2019 SUBJECTIVE: Maria L Sigala is afebrile. OBJECTIVE: VITAL SIGNS: Heart rate 72, respiratory rate 20, oximetry 94% on room air, blood pressure 118/68. LUNGS: Unchanged. HEART: Unchanged. ABDOMEN: Unchanged. He is tentatively on schedule for stress test today. IMPRESSION: Sleep apnea, stable on BiPAP. PLAN: Continue current care. Job ID: [id number]
[2019-12-20] MEDS: Atorvastatin Calcium 10 MG TAB PO SCH (20:13)
[2019-12-20] MEDS: Tamsulosin HCl 0.4 MG CAP PO SCH (20:13)
--- NOTE | 2019-12-21 07:19 | PDOC.FM ---
- Subjective Subjective: NAEO. Patient completed stress test & was WNLs. Reports he slept ok on the Bipap. Reports persistent neck pain. Ready to go home today. Doesn't want home PT. - Objective MAR Reviewed: Yes Vital Signs & Weight: Vital Signs (12 hours) Pulse Resp Pulse Ox 12/21/19 01:42 74 18 95 12/20/19 23:28 84 22 H 94 L Weight Admit Weight 131.8 kg Weight 131.8 kg Most Recent Monitor Data Heart Rate from ECG 84 NIBP 118/68 NIBP BP-Mean 84 Respiration from ECG 15 SpO2 91 I&O: 12/20/19 12/21/19 12/22/19 06:59 06:59 06:59 Intake Total 1210 900 Output Total 2400 1000 Balance -1190 -100 Result Diagrams: 12/16/19 03:13 12/16/19 03:13 Phys Exam - Physical Examination Constitutional: NAD HEENT: moist MMs Neck: supple, full ROM Respiratory: no wheezing, no rales, no rhonchi, clear to auscultation bilateral Cardiovascular: RRR, no significant murmur Neurological: non-focal, moves all 4 limbs Psychiatric: normal affect, A&O x 3 Dx/Plan (1) Altered mental status Code(s): R41.82 - ALTERED MENTAL STATUS, UNSPECIFIED Status: Resolved (2) BPH (benign prostatic hyperplasia) Code(s): N40.0 - BENIGN PROSTATIC HYPERPLASIA WITHOUT LOWER URINRY TRACT SYMP Status: Chronic (3) CAD (coronary artery disease) Code(s): I25.10 - ATHSCL HEART DISEASE OF [place] CORONARY ARTERY W/O ANG PCTRS Status: Chronic (4) Cellulitis of left foot Code(s): L03.116 - CELLULITIS OF LEFT LOWER LIMB Status: Acute (5) Chronic pain Code(s): G89.29 - OTHER CHRONIC PAIN Status: Chronic (6) Depression Code(s): F32.9 - MAJOR DEPRESSIVE DISORDER, SINGLE EPISODE, UNSPECIFIED Status : Chronic (7) H/O fall Code(s): Z91.81 - HISTORY OF FALLING Status: Chronic (8) HLD (hyperlipidemia) Code(s): E78.5 - HYPERLIPIDEMIA, UNSPECIFIED Status: Chronic (9) HTN (hypertension) Code(s): I10 - ESSENTIAL (PRIMARY) HYPERTENSION Status: Chronic (10) Obesity Code(s): E66.9 - OBESITY, UNSPECIFIED Status: Chronic (11) Spinal stenosis Code(s): M48.00 - SPINAL STENOSIS, SITE UNSPECIFIED Status: Chronic (12) ARSALAN (obstructive sleep apnea) Code(s): G47.33 - OBSTRUCTIVE SLEEP APNEA (ADULT) (PEDIATRIC) Status: Suspected - Plan Plan: Acute encephalopathy, resolved - Neurology, Dr. Shin consulted. EEG normal. No further workup, mental status improved. Likely 2/2 polypharmacy as resolved with removal of multiple sedating agents. H/o Fall, weakness, urinary incontinence - 6 month decline per family. May very well be related to orthostatic hypotension along w/ home use of narcotics. - Pt is too large in girth for MRI. No clinical utility of CT c-spine or lumbar spine at this point per NS. Pt needs open MRI under sedation which can only be accomplished outpatient. This was discussed in detail and at length with patient , daughter, and and admitting team. - PT/OT on board & recommended SNF vs Rehab but denied by rehab as patient will need to use his rehab days following his neurosurgery with Dr. Mock to be performed at a later date this year. Best option in the meantime will be home with home PT but patietn not interested at this time. Acute on chronic hypercapneic respiratory failure 2/2 ARSALAN vs. OHS, improving - Continue use of BiPAP at night and when sleeping per pulm recs. 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 in sleep lab to assist with getting home CPAP as ABG from 3 days ago did not qualify patient for a home trilogy. - [facility] PA, they do not have a reason for cervical problem causing respiratory depression. They feel cauda equina less likely. Highly suspect ARSALAN vs. OHS per pulm. LLE cellulitis, improving - Continue doxycycline for total of 10 day course. CAD - Cont aspirin, losartan, metoprolol HTN - Cont losartan, metoprolol HLD - Cont simvastatin Depression Hx of Suicide attempt 14 years ago by medication overdose - Recommend outpatient psych therapy support and adjustment of psych medications as PCP sees fit. - Cont celexa BPH - Cont tamsulosin Chronic pain 2/2 spinal stenosis - Held trazodone, ambien, and amitriptyline - continued diclofenac, tylenol & [place] at 5mg Q8H prn. KHADIJAH & PRN bowel regimen as well with narcotics. Diet: HH VTE ppx: lovenox Code Status: Full PCP: Dr. Weldon Abx: Doxy (12/11- day #10) IVFs: SL Dispo: D/c home with close follow-up with Shir[facility] Helm & Becky. To set up a sleep study as an outpatient OTTO & PCP ordering MRI for prep for surgery. Per pulm, does not need a home machine to be discharged. Addendum - Attending - Attending Attestation Date/Time: 12/21/19 6020 I personally evaluated the patient and discussed the management with Dr. Sanches. I agree with the History, Examination, Assessment and Plan documented above with any addition or exceptions noted below. 59 yo M admitted with acute encephalopathy suspected 2/2 ARSALAN. 2 day stress test was negative. Needs outpatient sleep study with pulm to eval for ARSALAN. Still needs outpatient MRI with TBSI in order to prep for surgery. was approved. Cont treatment for cellulitus. Discharge today. RA Veloz
--- NOTE | 2019-12-21 08:59 | NM ---
CARDIAC SPECT: CLINICAL HISTORY: 59-year-old male needs cardiac clearance for surgery. Coronary artery disease, hypertension, and dysl ipidemia. TECHNIQUE: A myocardial perfusion scan was performed using the single isotope two day protocol with 33 mCi techn etium-99m sestamibi injected intravenously for both stress and rest images. Pharmacologic stress with Lexiscan was monitored and interpreted by Brian Ko NP. FINDINGS: There is fairly homogeneous tracer distribution in the myocardial segments on stress and rest images without fixed or reversible defects. GATED SPECT LVEF: 86%. WALL MOTION EXAM: Normal. IMPRESSION: Normal myocardial perfusion scan. POS: HAYDEN
[2019-12-21] MEDS: HYDROcodone/Acetaminophen 5/325 mg Tablet PO PRN (09:23)
[2019-12-21] MEDS: Aspirin 81 mg Enteric Coated Tablet PO SCH (09:24)
[2019-12-21] MEDS: Docusate 100 MG CAP PO SCH (09:25)
[2019-12-21] MEDS: Citalopram 20 MG TAB PO SCH (09:25)
[2019-12-21] MEDS: Enoxaparin Sodium 40 MG/0.4 ML SYRINGE SC SCH (09:26)
[2019-12-21] MEDS: Doxycycline 100 MG CAP PO SCH (10:15)
[2019-12-21] MEDS: Vit A,C & E/Lutein/Minerals Tablet PO SCH (10:15)
[2019-12-21 11:08] VITALS: BP 104/69; TEMP 98.5
--- NOTE | 2019-12-22 11:45 | DIS ---
DATE OF ADMISSION: 12/14/2019 DATE OF DISCHARGE: 12/21/2019 RESIDENT: Daniela Sanches MD. ADMITTING ATTENDING: Shar Campbell MD. DISCHARGE ATTENDING: Saqib Veloz MD. CONSULTATIONS: 1. Pulmonology, Dr. Felton Pena. 2. Neurology Dr. Melany Shin. PROCEDURES: Nuclear medicine cardiac stress test was performed in 2 parts 12/20/2019 And 12/21/2019, which was within normal limits. PRIMARY DIAGNOSES: 1. Toxic encephalopathy secondary to polypharmacy. 2. History of recurrent falls secondary to polypharmacy. 3. Urinary incontinence. 4. Left lower extremity cellulitis. 5. [id number] hypercapnic respiratory failure. SECONDARY DIAGNOSES: 1. Coronary artery disease. 2. Hypertension. 3. Hyperlipidemia. 4. Depression. 5. Benign prostatic hyperplasia. 6. Chronic pain secondary to spinal stenosis. 7. Obesity. DISCHARGE MEDICATIONS: 1. Diclofenac 75 mg p.o. b.i.d. 2. Tamsulosin 0.4 mg p.o. at bedtime. 3. Simvastatin 20 mg p.o. at bedtime. 4. Metoprolol succinate 50 mg p.o. daily. 5. Losartan potassium 100 mg p.o. daily. 6. Hydrocodone/acetaminophen 7.5/325 one tab p.o. t.i.d. p.r.n. 7. Citalopram hydrobromide 20 mg p.o. b.i.d. 8. Omeprazole 40 mg p.o. daily. 9. Albuterol sulfate 2 puffs inhaled q.4 hours p.r.n. 10. Vision vitamins 1 tablet p.o. daily. 11. Aspirin 81 mg p.o. daily. 12. Doxycycline 100 mg p.o. b.i.d., #20 capsules. 13. Acetaminophen 650 mg p.o. q.4 hours p.r.n. 14. Docusate 100 mg p.o. b.i.d. 15. MiraLAX 17 g packet p.o. daily p.r.n. DISCONTINUED MEDICATIONS: 1. Trazodone 100 mg p.o. at bedtime. 2. Ambien 10 mg p.o. at bedtime. 3. Amitriptyline 150 mg p.o. at bedtime. HOSPITAL COURSE: The patient is a 59-year-old male with a past medical history notable for morbid obesity, CAD, insomnia, and chronic neck pain 2/2 to spinal stenosis, who presented to the ER for evaluation for left leg weakness and recurrent falls. Of note, he was recently admitted 2 days prior for the same issue during which time he was diagnosed with cellulitis and started on PO doxycycline. The patient reported that since May of 2019, he has had episodes of weakness , unsteadiness and associated urinary incontinence that have gotten progressively worse. He also reported insomnia with issues sleeping for which he takes multiple sedating medications. On evaluation in the ER, the patient's vitals were noted to be within normal limits and he was given 2 mg of IV lorazepam. Lab work was unremarkable and his UDS was positive for benzodiazepines. However , he was very drowsy & encephalopathic & was therefore admitted for further workup & management of this. Regarding the patient's encephalopathy and history of recurrent falls, medication reconciliation revealed that the patient was on multiple sedating medications, which were more than likely contributing to this. These medications were discontinued and the patient had no episodes of falling and his encephalopathy improved rapidly. In addition, Neurology Dr. Shin was consulted for further evaluation and workup of his AMS, who performed an EEG which was within normal limits. He was therefore discharged with instructions to discontinue his trazodone, amitriptyline and Ambien at bedtime as his sleep issues were also most likely to ARSALAN versus OHS as noted below. Regarding his initial reported urinary incontinence, Neurosurgery was consulted from the emergency department briefly, who reported they did not believe his incontinence was related to cauda equina syndrome or any spinal stenosis that he may have. He had no reported episodes for the duration of his stay that the primary team was made aware of. IF persistent upon d/c recommend further outpatient follow-up & management of this. Regarding his acute-on- chronic hypercapnic respiratory failure 2/2 ARSALAN vs. OHS , pulmonology followed the patient for the duration of his hospital stay and was able to improve his sleep on BiPAP overnight. Unfortunately, based on laboratory analysis, the patient did not qualify for a home BiPAP or trilogy device at this time. Per pulmonology, he would need to complete an outpatient or home sleep study in order to get the necessary data for him to get a home machine. The patient was therefore instructed to follow up with pulmonology as soon as possible upon discharge to complete a sleep study as he would also need pulmonology clearance for impending surgery for his spinal stenosis. Regarding his left lower extremity cellulitis, the patient was continued on p.o. doxycycline, which had been started on his admission 2 days prior and his cellulitis had almost completely resolved by the date of discharge. While inpatient, given the recent changes in the patient's insurance, his PCP, Dr. Tisha Weldon, recommended undergoing a cardiac stress test to complete cardiac clearance, which would be required for him to undergo surgery for his spinal stenosis. This was done over the course of 2 days due to the patient's body habitus and was noted to be within normal limits. The patient was therefore instructed to follow up with his PCP for recommendations on undergoing an open MRI of his cervical and lumbar spine per the recommendations of Neurosurgery and with Neurosurgery after completion of the MRI in order to further discuss and schedule his anticipated surgery. DISPOSITION: Stable. DISCHARGE INSTRUCTIONS: 1. Location: Home. 2. Diet: Heart healthy, low-sodium diet. 3. Activity: As tolerated. No restrictions. 4. Followup: The patient was instructed to follow up with PCP Dr. Tisha Weldon within a week of discharge, Dr. Felton Pena, Group Billing Coordinator within a week of discharge and Dr. Danny Mock within approximately 2 weeks or upon completion of his MRI for his anticipated surgery. Job ID: [id number] MTDD
== END 2019-12-21 13:21 | disposition home or self-care (01) | DRG 91 ==
LOC: ERS 17:54 → T4-B 23:45 → OBSVTOIN 23:45 → IMCU/EMU 12-15 02:03 → T4-A 12-20 12:55
PROVIDERS: ADMIT Emergency Medicine; ATTEND Emergency Medicine
PROC: 5A09457 Assistance with Respiratory Ventilation, 24-96 Consecutive Hours, Continuous Positive Airway Pressure (ICD-10-PCS; principal; 2019-12-15)
DX: G92 Toxic encephalopathy (principal); J96.21 Acute and chronic respiratory failure with hypoxia; L03.116 Cellulitis of left lower limb; E66.2 Morbid (severe) obesity with alveolar hypoventilation; Z68.41 Body mass index [BMI] 40.0-44.9, adult; G47.00 Insomnia, unspecified; I25.10 Atherosclerotic heart disease of native coronary artery without angina pectoris; N40.0 Benign prostatic hyperplasia without lower urinary tract symptoms; E78.5 Hyperlipidemia, unspecified; I10 Essential (primary) hypertension; F32.9 Major depressive disorder, single episode, unspecified; G89.29 Other chronic pain; M48.00 Spinal stenosis, site unspecified; R29.6 Repeated falls; N39.41 Urge incontinence; Z90.49 Acquired absence of other specified parts of digestive tract; Z87.891 Personal history of nicotine dependence
CPT/HCPCS: 36415; 36416; 70450; 71045; 78452; 80048; 80053; 80306; 81003; 82330; 82803; 82805; 82947; 83605; 83690; 83880; 84484; 85025; 87040; 87086; 93005; 93010; 93017; 94660; 95712; 95816; 95819; 95957; 96365; 96366; 96368; 96372; 96374; A9500; G0378; J0692; J1650; J2060; J2785; J3370

== ENCOUNTER 2019-12-30 16:30 | Outpatient (CLI) | payer MEDICARE | END 2019-12-30 16:31 | disposition home or self-care (01) | LOC: SLEEPLAB 16:30 | PROVIDERS: ATTEND Internal Medicine Critical Care Medicine | DX: G47.33 Obstructive sleep apnea (adult) (pediatric) (principal); R53.83 Other fatigue; G31.84 Mild cognitive impairment of uncertain or unknown etiology; R06.83 Snoring; F41.9 Anxiety disorder, unspecified; G47.00 Insomnia, unspecified; F32.9 Major depressive disorder, single episode, unspecified; I10 Essential (primary) hypertension; E66.9 Obesity, unspecified; Z68.41 Body mass index [BMI] 40.0-44.9, adult | CPT/HCPCS: 95801 ==

== ENCOUNTER 2020-01-09 09:12 | Outpatient (CLI) | payer MEDICARE ==
--- NOTE | 2020-01-09 14:30 | RAD ---
TWO VIEWS CHEST: Date: 01-09-2020 Comparison: 12-12-2019 History: Shortness of breath FINDINGS: There are coarse increased linear interstitial densities noted in bilateral perihilar regions in both lung bases, similar when compared to prior imaging. Inspiration is shallow. The patient's chin parti ally obscures the lung apices. Motion limits detailed assessment on the lateral view. Clips in the ri ght upper quadrant suggest prior cholecystectomy. IMPRESSION: Shallow inspiration and increased nonspecific linear interstitial density. POS: STEPHAN
== END 2020-01-09 09:13 | disposition home or self-care (01) ==
LOC: BICRAD 09:12
PROVIDERS: ATTEND Internal Medicine Critical Care Medicine
DX: R06.00 Dyspnea, unspecified (principal); J98.4 Other disorders of lung; R06.89 Other abnormalities of breathing
CPT/HCPCS: 71046

== ENCOUNTER 2020-01-12 19:00 | Outpatient (CLI) | payer MEDICARE | END 2020-01-12 19:01 | disposition home or self-care (01) | LOC: SLEEPLAB 19:00 | PROVIDERS: ATTEND Internal Medicine Critical Care Medicine | DX: G47.33 Obstructive sleep apnea (adult) (pediatric) (principal); R06.83 Snoring; I10 Essential (primary) hypertension; G47.10 Hypersomnia, unspecified; F41.8 Other specified anxiety disorders; E66.9 Obesity, unspecified; Z68.41 Body mass index [BMI] 40.0-44.9, adult | CPT/HCPCS: 95811 ==

== ENCOUNTER 2020-01-22 08:38 | Inpatient (IN) | payer MEDICARE ==
[2020-01-22 09:45] LABS: #Basophils 0.1 thou/uL (0.0-0.2); #Eosinphils 0.1 thou/uL (0.0-0.7); #Lymphocytes 1.3 thou/uL (1.20-3.40); #Monocytes 0.7 thou/uL (0.11-0.59); #Neutrophils 6.2 thou/uL (1.40-6.50); %Basophils 0.7 % (0.0-1.0); %Eosinophils 1.2 % (0.0-10.0); %Neutrophils 74.1 % (42.0-75.0); Hemoglobin 14.6 g/dL (14.0-18.0); Mean Corpuscular HGB CONC 31.5 g/dL (32.0-36.0); Mean Corpuscular Hemoglobin 29.2 pg (27.0-31.0); Mean Corpuscular Volume 92.8 fL (78.0-98.0); Mean Platelet Volume 7.8 fL (7.4-10.4); Platelet Count 195 thou/uL (130-400); RBC Distribution Width 11.8 % (11.5-14.5); Red Blood Cell (RBC) Count 5.01 mill/uL (4.70-6.10); White Blood Cell (WBC) Count 8.4 thou/uL (4.8-10.8)
[2020-01-22 10:04] LABS: ALT (SGPT) 20 U/L (8-55); AST (SGOT) 22 U/L (5-34); Albumin 4.2 g/dL (3.5-5.0); Alkaline Phosphatase 82 U/L (40-110); Anion Gap 15 mmol/L (10-20); BUN (Urea Nitrogen) 15 mg/dL (8.4-25.7); Bilirubin, Total 0.5 mg/dL (0.2-1.2); Calc. Creatinine Clearance 0 mL/min (70-130); Calcium 9.6 mg/dL (7.8-10.44); Carbon Dioxide 28 mmol/L (22-29); Chloride 102 mmol/L (98-107); Estimated GFR-MDRD Greater than 90; Globulin 2.9 g/dL (2.4-3.5); Glucose 94 mg/dL (70-105); Potassium 4.4 mmol/L (3.5-5.1); Protein, Total 7.1 g/dL (6.0-8.3); Sodium 141 mmol/L (136-145)
[2020-01-22 11:15] LABS: Bilirubin Negative (Negative); Blood, Urine Negative (Negative); Clarity Clear (Clear); Glucose, Urine (Dipstick) Normal (Negative); Leukocyte Negative Leu/uL (Negative); Nitrite Negative (Negative); Protein, Urine (Dipstick) 20 mg/dL (Neg-Trace)
[2020-01-22] MEDS ORDERED: cefTRIAXone\\ROCEPHIN 1 GM VIAL ONE (11:32)
--- NOTE | 2020-01-22 15:12 | PDOC.FPRHP ---
- History of Present Illness Chief Complaint: Neck pain, Instability, Dizziness, Incontinence History of Present Illness: 59 year old male presents with a 7 month history of neck pain, numbness/ tingling in upper extremities, weakness, and instability. Patient states this has worsened over the last several weeks. He was hospitalized within the last month for similar complaints. Medications were adjusted at that time, and patient did improve for a short while. He has been on a gradual decline however in the last week or so. He has surgery scheduled on February 09 for his spinal stenosis with Dr. Mock. He was hoping to get this moved up due to his worsening symptoms. Family has called Dr. Mock's office on several occasions, but due to stability of patient at this time, surgery was not deemed urgent. Patient does report frequent falls at home. His works during the day, so she fears for his safety when she is not around. Patient does have a slightly erythematous right lower extremity. This has been present for several months. Patient reports that he has taken doxycycline in the outpatient setting. The erythema has remained the same. However, he denies any pain, fever, warmth to the area. He is immobile at home. Patient has ARSALAN/obesity hypoventilation syndrome. He did state that he recently had sleep study done, but he has not been able to go for titration. Patient denies cough, congestion, fever, chills, shortness of breath, N/V. - Allergies/Adverse Reactions Allergies Allergy/AdvReac Type Severity Reaction Status Date / Time No Known Allergies Allergy Unverified 10/23/19 01:32 - Home Medications Medication Instructions Recorded Confirmed Type Citalopram Hydrobromide 20 mg PO BID 11/10/17 01/22/20 History [Citalopram HBr] Diclofenac Sodium 75 mg PO BID 11/10/17 01/22/20 History HYDROcodone/Acetaminophen 1 tab PO TID PRN 11/10/17 01/22/20 History [Hydrocodone-Acetamin 7.5-325] Losartan Potassium 100 mg PO DAILY 11/10/17 01/22/20 History Metoprolol Succinate 50 mg PO DAILY 11/10/17 01/22/20 History Simvastatin [Zocor] 20 mg PO HS 11/10/17 01/22/20 History Tamsulosin HCl 0.4 mg PO HS 11/10/17 01/22/20 History Albuterol Sulfate [Ventolin HFA] 2 puff INH Q4HR PRN 12/12/19 01/22/20 History Omeprazole 40 mg PO DAILY 12/12/19 01/22/20 History Aspirin [Ecotrin Low Strength] 81 mg PO DAILY 12/13/19 01/22/20 History Beta-Carotene(A)-Vits C,E/Mins 1 tablet PO DAILY 12/13/19 01/22/20 History [Vision Vitamins] - History PMHx: Cervical stenosis 2/2 DDD, HLD, HTN, Nicotine dependence, Obesity, Opioid dependence, GERD, ARSALAN, besity hyopventilation syndrome, Depression, Insomnia PSHx: Cholecystectomy, Knee arthroscopy, Back surgery x2, Bilateral foot surgery , Nephrology procedure FHx: Denies significant family history Social: Endorses tobacco use history. States quit at beginning of year. Was smoking cigars 1-2/day for many years. Endorses occasional alcohol use, but denies abuse history. Denies drug abuse. Only takes what he is prescribed. - Review of Systems General: reports: fatigue. denies: fever/chills Eyes: reports: vision changes. denies: eye pain ENT: denies: nasal congestion, rhinorrhea Respiratory: reports: exercise intolerance. denies: cough, congestion, shortness of breath Cardiovascular: reports: edema (lower extremity), paroxysmal nocturnal dyspnea, orthopnea. denies: chest pain, palpitation Gastrointestinal: denies: nausea, vomiting, diarrhea, constipation, abdominal pain Genitourinary: reports: incontinence. denies: dysuria Skin: denies: rashes, lesions, jaundice Musculoskeletal: reports: pain, tenderness, stiffness, arthritis/arthralgias Neurological: reports: numbness (upper extremities), syncope ("blacks out" from pain), weakness. denies: seizure Psychological: reports: anxiety, depression - Vital signs BP: 141/96 HR: 61 RR: 18 Tmax: 98.3F Pox: 98% on RA - Physical Exam Constitutional: NAD, awake, alert and oriented, well developed -Constitutional: Sitting at bedside HEENT: EOMI, no scleral icterus, grossly normal vision, grossly normal hearing, MMM -Neck: Prominent T1, Decreased ROM 2/2 pain, TTP along paraspinal and spinal processes in cervical region Heart: RRR, no murmurs/rubs/gallops, pulses present -Heart: 1+ pitting edema of lower extremities Lungs: CTAB, no respiratory distress, no wheezing Abdomen: soft, non-tender, bowel sounds present -Abdomen: Obese Musculoskeletal: normal tone, ROM grossly normal Neurological: no focal deficit -Neurological: Strength 3/5 in bilateral upper extremities, uncertain if this is effort related. Left sided facial droop, present at last admission. -Skin: Mildly erythematous left lower extremity from foot to 1/[address] up calf. No warmth appreciated. No evidence of bullae or infection. Appears consistent with chronic venous stasis. Heme/Lymphatic: no unusual bruising or bleeding, no purpura -Psychiatric: Anxious appearing. Fair insight and judgment FMR H&P: Results - Labs Result Diagrams: 01/22/20 09:36 01/22/20 09:36 Lab results: WBC 8.4 thou/uL (4.8-10.8) 01/22/20 09:36 Hgb 14.6 g/dL (14.0-18.0) 01/22/20 09:36 Hct 46.5 % (42.0-52.0) 01/22/20 09:36 MCV 92.8 fL (78.0-98.0) 01/22/20 09:36 Plt Count 195 thou/uL (130-400) 01/22/20 09:36 Neutrophils % 74.1 % (42.0-75.0) 01/22/20 09:36 Sodium 141 mmol/L (136-145) 01/22/20 09:36 Potassium 4.4 mmol/L (3.5-5.1) 01/22/20 09:36 Chloride 102 mmol/L (98-107) 01/22/20 09:36 Carbon Dioxide 28 mmol/L (22-29) 01/22/20 09:36 BUN 15 mg/dL (8.4-25.7) 01/22/20 09:36 Creatinine 0.78 mg/dL (0.7-1.3) 01/22/20 09:36 Glucose 94 mg/dL (70-105) 01/22/20 09:36 Lactic Acid 1.5 mmol/L (0.5-2.2) 01/22/20 09:36 Calcium 9.6 mg/dL (7.8-10.44) 01/22/20 09:36 Total Bilirubin 0.5 mg/dL (0.2-1.2) 01/22/20 09:36 AST 22 U/L (5-34) 01/22/20 09:36 ALT 20 U/L (8-55) 01/22/20 09:36 Alkaline Phosphatase 82 U/L (40-110) 01/22/20 09:36 B-Natriuretic Peptide Less than 10.0 pg/mL (0-100) 01/22/20 09:36 Serum Total Protein 7.1 g/dL (6.0-8.3) 01/22/20 09:36 Albumin 4.2 g/dL (3.5-5.0) 01/22/20 09:36 Urine Ketones 60 mg/dL (Negative) A 01/22/20 09:30 Urine Blood Negative (Negative) 01/22/20 09:30 Urine Nitrite Negative (Negative) 01/22/20 09:30 Ur Leukocyte Esterase Negative Neda/uL (Negative) 01/22/20 09:30 FMR H&P: A/P - Problem List (1) Physical deconditioning Current Visit: Yes Status: Acute Code(s): R53.81 - OTHER MALAISE (2) Chronic pain Current Visit: No Status: Chronic Code(s): G89.29 - OTHER CHRONIC PAIN (3) Depression Current Visit: No Status: Chronic Code(s): F32.9 - MAJOR DEPRESSIVE DISORDER , SINGLE EPISODE, UNSPECIFIED (4) H/O fall Current Visit: No Status: Chronic Code(s): Z91.81 - HISTORY OF FALLING (5) HLD (hyperlipidemia) Current Visit: No Status: Chronic Code(s): E78.5 - HYPERLIPIDEMIA, UNSPECIFIED (6) HTN (hypertension) Current Visit: No Status: Chronic Code(s): I10 - ESSENTIAL (PRIMARY) HYPERTENSION (7) Obesity Current Visit: No Status: Chronic Code(s): E66.9 - OBESITY, UNSPECIFIED (8) Spinal stenosis Current Visit: No Status: Chronic Code(s): M48.00 - SPINAL STENOSIS, SITE UNSPECIFIED (9) ARSALAN (obstructive sleep apnea) Current Visit: No Status: Suspected Code(s): G47.33 - OBSTRUCTIVE SLEEP APNEA (ADULT) (PEDIATRIC) (10) Syncope Current Visit: Yes Status: Acute Code(s): R55 - SYNCOPE AND COLLAPSE - Plan 59 year old male with recurrent falls, hx of spinal stenosis requiring surgical intervention, weakness, and gait instability Physical deconditioning - Patient unable to care for himself at home - Attributed to cervical stenosis requiring surgery on 02/09 - Weakness, gait instability, recurrent falls - Patient cannot use inpatient rehab days as he will need these after surgery - Can consider talking with Neurosurgery to see if the surgery can be moved up; although this is unlikely as family has already been in touch with Neurosurgery and it appears the date is set for 02/09 - Discussed options at length with family. Given patient's inability to care for himself and need for PT, patient would be a good candidate for SNF placement. Discussed with patient and family member. They would like to proceed with this route should surgery not be able to be moved up at this time. - Fall precautions in place - Ambulate only with assistance - PT/OT Possible syncope - Unwitnessed - Patient reports syncopal episode - Will monitor on telemetry - Patient had recent cardiac workup which was negative Possible hx CVA - This would have been a month ago - Patient presented with facial droop, ataxia, slurred speech a month ago; he had a workup at that time. CT of the brain was negative. Unable to do MRI due to habitus. Facial droop has been present since that time. Venous stasis - LLE erythema does not appear to be cellulitis - Patient has had oral and IV abx and erythema remains, suspect this is due to venous stasis - Non-tender, no warmth, no WBC, no fever/chills. If this was cellulitis that has not been treated to completion for several months, I would expect patient to be much sicker - Patient was given dose of Ceftriaxone down in ED; will not continue as suspicion for cellulitis is low. Will obtain procal to further risk stratify. - LE swelling does not appear to be from fluid overload, BNP is negligible and patient does not otherwise appear to be fluid up. Likely 2/2 venous stasis. Can consider lasix if fluid status changes. ARSALAN/obesity hypoventilation syndrome - Patient had outpatient sleep study but has not been titrated for CPAP/BiPAP - He did use BiPAP during last hospitalization and does well - He has waxing and weaning mental status changes that are suspected to be secondary to low O2 at night when he does not use BiPAP. Will try to get BiPAP while in hospital. Spinal stenosis, cervical region - Patient has surgery planned for 02/[address] Mock Morbid obesity - Patient has lost weight since last hospitalization - Lovenox for DVT ppx given immobility - Encourage continued dietary changes HTN - Continue home medications HLD - Continue home medications Depression - Continue home medications Insomnia - D/c'd ambien at last hospitalization due to mental status changes. Do not start this back. DVT PPX: Lovenox Code Status: Full code Dispo: Admit to medical. Anticipate LOS >48 hours. FMR H&P: Upper Level - Plan Date/Time: 01/22/20 1506 I, [], have evaluated this patient and agree with findings/plan as outlined by hospital internship resident. Pertinent changes/additions are listed here. Addendum - Attending - Attending Attestation Date/Time: 01/23/20 0806 I personally evaluated the patient and discussed the management with Dr. Mariscal last night. I agree with the History, Examination, Assessment and Plan documented above with any addition or exceptions noted below. Patient is worried about dizzines,s imbalance, incontinence. NS consult planned. Possible SNF placement. Has left sided mouth dropping for several weeks. Had CVA work up last month. Had unwitnesses syncopal episode a few days ago, while sitting. Has had cardiac workup recently with negative stress. Move to [facility].
[2020-01-22] MEDS ORDERED: Enoxaparin Sodium 40 MG/0.4 ML SYRINGE SC SCH (15:31)
[2020-01-22] MEDS ORDERED: Ondansetron ODT 4 MG TAB PO PRN (15:31)
[2020-01-22] MEDS ORDERED: Ondansetron PF 4 MG/2 ML Vial IVP PRN (15:31)
[2020-01-22 15:52] VITALS: BMI 41.0
[2020-01-22] MEDS: Citalopram 20 MG TAB PO SCH (20:52)
[2020-01-22] MEDS: Simvastatin 20 MG TAB PO SCH (20:52)
[2020-01-22] MEDS: HYDROcodone/Acetaminophen 7.5/325 mg Tablet PO PRN (20:52)
[2020-01-22] MEDS: Tamsulosin HCl 0.4 MG CAP PO SCH (20:53)
--- NOTE | 2020-01-23 06:56 | PDOC.FM ---
- Subjective Subjective: Did well overnight. Continues to report weakness, working with PT this AM. Family would like to talk with neurosurg. - Objective MAR Reviewed: Yes Vital Signs & Weight: Vital Signs (12 hours) Temp Pulse Resp BP BP Pulse Ox 01/23/20 04:00 97.4 F L 60 18 174/77 H 99 01/23/20 00:24 19 98 01/22/20 22:15 92 L 01/22/20 19:48 97.7 F 78 20 150/69 H 92 L Weight Weight 129.727 kg Result Diagrams: 01/22/20 09:36 01/22/20 09:36 Phys Exam - Physical Examination Constitutional: NAD HEENT: moist MMs Respiratory: no wheezing, clear to auscultation bilateral Cardiovascular: RRR Gastrointestinal: soft Musculoskeletal: pulses present Psychiatric: A&O x 3 Skin: no rash Dx/Plan - Plan Plan: 59yo male with recurrent falls, hx of spinal stenosis requiring surgical intervention, weakness, and gait instability Physical deconditioning - Patient unable to care for himself at home. Weakness, gait instability, recurrent falls - Attributed to cervical stenosis requiring surgery on 02/09 - Patient cannot use inpatient rehab days as he will need these after surgery. Family would like to pursue SNF. CM consulted - Will discuss case today with Neurosurgery to see if the surgery can be moved up. Consult placed. - Continue fall precautions - PT/OT Possible syncope - Unwitnessed. Patient reports syncopal episode - Recent cardiac workup negative Possible hx CVA - Facial droop, ataxia, slurred speech a month ago; he had a workup at that time. CT of the brain was negative. Unable to do MRI due to habitus. Facial droop has been present since that time. Venous stasis - LLE erythema does not appear to be cellulitis. No need to continue Abx. ARSALAN/obesity hypoventilation syndrome - BiPAP ordered. Needs to complete CPAP/BiPAP outpt study - Waxing and weaning mental status changes suspected to be 2/2 to low O2 at night when he does not use BiPAP. Spinal stenosis, cervical region - Patient has surgery planned for 02/[address] Mock Morbid obesity - Patient has lost weight since last hospitalization - Lovenox for DVT ppx given immobility - Encourage continued dietary changes HTN - Continue home meds HLD - Continue home meds Depression - Continue home meds Insomnia - D/c'd ambien at last hospitalization due to mental status changes. Do not start this back. DVT PPX: Lovenox. BID due to BMI. Code Status: Full code Dispo: Admit to medical. Anticipate LOS >48 hours.
[2020-01-23] MEDS ORDERED: Enoxaparin Sodium 40 MG/0.4 ML SYRINGE SC SCH (09:00)
[2020-01-23] MEDS: Vit A,C & E/Lutein/Minerals Tablet PO SCH (09:14)
[2020-01-23] MEDS: Citalopram 20 MG TAB PO SCH ×2 (09:15→21:11)
[2020-01-23] MEDS: Losartan 25 MG TAB PO SCH (09:15)
[2020-01-23] MEDS: Enoxaparin Sodium 40 MG/0.4 ML SYRINGE SC SCH ×2 (09:15→21:10)
[2020-01-23] MEDS: HYDROcodone/Acetaminophen 7.5/325 mg Tablet PO PRN (09:16)
--- NOTE | 2020-01-23 12:22 | PRG ---
DATE OF SERVICE: 01/23/2020 Mr. Sigala is a 59-year-old man with cervical stenosis, who was admitted for multiple falls and gait instability. He is very frustrated this morning and wants something done about his cervical disk disease. We have explained to him that this is a decision of the neurosurgeon that he should make his wishes known to them. In the event, he does demonstrate some gait instability and long tract signs from his cervical stenosis. We have consulted Neurosurgery and await their input. He had surgery scheduled for 02/09, but he seems anxious to proceed sooner. Job ID: [id number]
[2020-01-23] MEDS: Tamsulosin HCl 0.4 MG CAP PO SCH (21:10)
[2020-01-23] MEDS: Simvastatin 20 MG TAB PO SCH (21:10)
[2020-01-24] MEDS: HYDROcodone/Acetaminophen 7.5/325 mg Tablet PO PRN ×3 (01:49→20:09)
--- NOTE | 2020-01-24 06:38 | PDOC.FM ---
- Subjective Subjective: Reports not doing well this morning. Complaint of pain and tremors. Voiding and stooling. About to eat breakfast. - Objective MAR Reviewed: Yes Vital Signs & Weight: Vital Signs (12 hours) Temp Pulse Resp BP BP Pulse Ox 01/24/20 04:00 97.8 F 56 L 18 170/78 H 96 01/24/20 00:37 94 L 01/23/20 23:33 122/58 L 01/23/20 19:14 98.5 F 79 18 91/55 L 94 L Weight Admit Weight 129.727 kg Weight 129.727 kg I&O: 01/22/20 01/23/20 01/24/20 06:59 06:59 06:59 Intake Total 450 Output Total 400 Balance 50 Result Diagrams: 01/22/20 09:36 01/22/20 09:36 Phys Exam - Physical Examination Constitutional: NAD HEENT: moist MMs Neck: supple Respiratory: no wheezing, clear to auscultation bilateral Cardiovascular: RRR, no significant murmur Gastrointestinal: soft, non-tender Musculoskeletal: no edema Neurological: moves all 4 limbs no myoclonus. bilateral arm tremor Psychiatric: normal affect, A&O x 3 Skin: no rash Dx/Plan - Plan Plan: 59yo male with recurrent falls, hx of spinal stenosis requiring surgical intervention, weakness, and gait instability Physical deconditioning - Patient unable to care for himself at home. Weakness, gait instability, recurrent falls - Attributed to cervical stenosis requiring surgery on 02/09 - CM consulted for SNF placement - Neurosurgery consult pending - PT/OT Possible syncope - Unwitnessed. Patient reports syncopal episode - Recent cardiac workup negative Possible hx CVA - Facial droop, ataxia, slurred speech a month ago; he had a workup at that time. CT of the brain was negative. Unable to do MRI due to habitus. Facial droop has been present since that time. Venous stasis - LLE erythema does not appear to be cellulitis. No need to continue Abx. ARSALAN/obesity hypoventilation syndrome - BiPAP ordered. Needs to complete CPAP/BiPAP outpt study - Waxing and weaning mental status changes suspected to be 2/2 to low O2 at night when he does not use BiPAP. Spinal stenosis, cervical region - Surgery planned for 02/[address] Mock Morbid obesity - Patient has lost weight since last hospitalization - Lovenox for DVT ppx given immobility - Encourage continued dietary changes HTN - Continue home meds. Reduced dose of Losartan due to symptomatic hypotension yesterday. HLD - Continue home meds Depression - Continue home meds Insomnia - D/c'd ambien at last hospitalization due to mental status changes. Do not start this back. DVT ppx: Lovenox. BID due to BMI. Code Status: Full Addendum - Attending - Attending Attestation Date/Time: 01/24/20 9430 I personally evaluated the patient and discussed the management with Dr. Ross. I agree with the History, Examination, Assessment and Plan documented above with any addition or exceptions noted below. Patient overall stable. Awaiting NSGY eval but suspect they will not want to do his surgery earlier than previously scheduled. Awaiting placement eval.
[2020-01-24] MEDS: Vit A,C & E/Lutein/Minerals Tablet PO SCH (08:10)
[2020-01-24] MEDS: Losartan 25 MG TAB PO SCH ×2 (08:11→09:34)
[2020-01-24] MEDS: Citalopram 20 MG TAB PO SCH ×2 (08:11→20:09)
[2020-01-24] MEDS: Enoxaparin Sodium 40 MG/0.4 ML SYRINGE SC SCH ×2 (08:11→20:10)
[2020-01-24] MEDS: Tamsulosin HCl 0.4 MG CAP PO SCH (20:09)
[2020-01-24] MEDS: Simvastatin 20 MG TAB PO SCH (20:09)
[2020-01-25] MEDS: HYDROcodone/Acetaminophen 7.5/325 mg Tablet PO PRN ×2 (03:53→21:17)
--- NOTE | 2020-01-25 06:41 | PDOC.FM ---
- Subjective Subjective: Reports feeling "rough" today. Eating breakfast. Reports constipation. Otherwise no concerns. - Objective MAR Reviewed: Yes Vital Signs & Weight: Vital Signs (12 hours) Temp Pulse Resp BP Pulse Ox 01/25/20 03:30 98.7 F 84 18 102/55 L 94 L 01/25/20 00:00 127/61 01/24/20 23:47 92 L 01/24/20 21:00 98 01/24/20 19:37 98.3 F 75 18 112/59 L 98 Weight Admit Weight 129.727 kg Weight 129.727 kg I&O: 01/23/20 01/24/20 01/25/20 06:59 06:59 06:59 Intake Total 450 240 Output Total 400 500 Balance 50 -260 Result Diagrams: 01/22/20 09:36 01/22/20 09:36 Phys Exam - Physical Examination Constitutional: NAD HEENT: moist MMs Neck: supple Respiratory: no wheezing, clear to auscultation bilateral Cardiovascular: RRR Gastrointestinal: soft Neurological: moves all 4 limbs Psychiatric: normal affect, A&O x 3 Skin: normal turgor Dx/Plan - Plan Plan: 59yo male with recurrent falls, hx of spinal stenosis requiring surgical intervention, weakness, and gait instability Physical deconditioning - Patient unable to care for himself at home. Weakness, gait instability, recurrent falls - Attributed to cervical stenosis requiring surgery on 02/09 - consulted for SNF placement - Neurosurgery consult pending - PT/OT Possible hx CVA - Facial droop, ataxia, slurred speech a month ago; he had a workup at that time. CT brain negative. Unable to do MRI due to habitus. Facial droop has been present since. Venous stasis ARSALAN/obesity hypoventilation syndrome - BiPAP ordered. Needs to complete CPAP/BiPAP outpt study - Waxing and weaning mental status changes suspected to be 2/2 to low O2 at night when he does not use BiPAP. Spinal stenosis, cervical region - Surgery planned for 02/[address] Mock Morbid obesity - Encourage continued dietary changes HTN - Continue home meds. HLD - Continue home meds Depression - Continue home meds Insomnia - D/c'd ambien at last hospitalization due to mental status changes. Do not start this back. DVT ppx: Lovenox. BID due to BMI. Code Status: Full Addendum - Attending - Attending Attestation Date/Time: 01/25/20 1014 I personally evaluated the patient and discussed the management with Dr. Ross. I agree with the History, Examination, Assessment and Plan documented above with any addition or exceptions noted below. Patient stable. Awaiting acceptance for swing bed for rehab until his spine surgery with NSGY that is currently planned for January.
[2020-01-25] MEDS: Vit A,C & E/Lutein/Minerals Tablet PO SCH (08:12)
[2020-01-25] MEDS: Losartan 25 MG TAB PO SCH ×2 (08:12→09:03)
[2020-01-25] MEDS: Citalopram 20 MG TAB PO SCH ×2 (08:13→21:13)
[2020-01-25] MEDS: Enoxaparin Sodium 40 MG/0.4 ML SYRINGE SC SCH ×2 (08:13→21:12)
[2020-01-25] MEDS: Polyethylene Glycol 3350 17 GM Packet PO SCH (08:13)
[2020-01-25] MEDS: Tamsulosin HCl 0.4 MG CAP PO SCH (21:13)
[2020-01-25] MEDS: Simvastatin 20 MG TAB PO SCH (21:13)
--- NOTE | 2020-01-26 07:04 | PDOC.FM ---
- Subjective Subjective: Symptoms stable. Denies chest pain, shortness of breath. Working with PT/OT. Feels ready to discharge to SNF today. - Objective MAR Reviewed: Yes Vital Signs & Weight: Vital Signs (12 hours) Temp Pulse Resp BP BP Pulse Ox 01/26/20 03:43 98.1 F 75 22 H 119/59 L 97 01/26/20 00:32 98 01/26/20 00:29 98 01/25/20 23:38 98.7 F 127/60 01/25/20 19:44 98.7 F 83 16 91/52 L 94 L Weight Admit Weight 129.727 kg Weight 129.727 kg I&O: 01/25/20 01/26/20 01/27/20 06:59 06:59 06:59 Intake Total 240 1090 Output Total 500 2315 Balance -260 -1225 Result Diagrams: 01/22/20 09:36 01/22/20 09:36 Phys Exam - Physical Examination Constitutional: NAD HEENT: moist MMs Neck: supple Respiratory: no wheezing, clear to auscultation bilateral Cardiovascular: RRR Gastrointestinal: no distention Neurological: moves all 4 limbs Psychiatric: normal affect, A&O x 3 Skin: normal turgor Dx/Plan - Plan Plan: 59yo male with recurrent falls, hx of spinal stenosis requiring surgical intervention, weakness, and gait instability Physical deconditioning - Approved for SNF. Likely discharge today Possible hx CVA - Facial droop, ataxia, slurred speech a month ago; he had a workup at that time. CT brain negative. Unable to do MRI due to habitus. Facial droop has been present since. Venous stasis ARSALAN/obesity hypoventilation syndrome - BiPAP ordered. Needs to complete CPAP/BiPAP outpt study Spinal stenosis, cervical region - Surgery planned for 02/[address] Mock Morbid obesity - Encourage continued dietary changes HTN - Continue home meds. HLD - Continue home meds Depression - Continue home meds Insomnia - D/c'd ambien at last hospitalization due to mental status changes. Do not start this back. DVT ppx: Lovenox. BID due to BMI. Code Status: Full Addendum - Attending - Attending Attestation Date/Time: 01/26/20 1122 I personally evaluated the patient and discussed the management with Dr. Ross. I agree with the History, Examination, Assessment and Plan documented above with any addition or exceptions noted below. Stable for discharge to swing bed.
[2020-01-26] MEDS: HYDROcodone/Acetaminophen 7.5/325 mg Tablet PO PRN (08:32)
[2020-01-26] MEDS: Enoxaparin Sodium 40 MG/0.4 ML SYRINGE SC SCH (08:33)
[2020-01-26] MEDS: Vit A,C & E/Lutein/Minerals Tablet PO SCH (08:33)
[2020-01-26] MEDS: Citalopram 20 MG TAB PO SCH (08:33)
[2020-01-26] MEDS: Losartan 25 MG TAB PO SCH (08:33)
[2020-01-26] MEDS: Polyethylene Glycol 3350 17 GM Packet PO SCH (08:34)
[2020-01-26 11:49] VITALS: BP 113/60; TEMP 98.3
--- NOTE | 2020-01-27 12:32 | DIS ---
DATE OF ADMISSION: 01/22/2020 DATE OF DISCHARGE: 01/26/2020 RESIDENT: Lyn Ross, PGY-2. ADMITTING ATTENDING: Tevin Penny MD. DISCHARGE ATTENDING: Brant Jones MD. CONSULTS: None. PRIMARY DIAGNOSIS: Physical deconditioning. SECONDARY DIAGNOSES: 1. Possible history of CVA. 2. Venous stasis. 3. Obstructive sleep apnea. 4. Obesity hypoventilation syndrome. 5. Spinal stenosis, cervical region. 6. Morbid obesity. 7. Hypertension. 8. Hyperlipidemia. 9. Depression. 10. Insomnia. DISCHARGE MEDICATIONS: 1. Albuterol q.4 hours p.r.n. 2. Aspirin 81 mg daily. 3. Beta-carotene A, vitamin C, E one tablet daily. 4. Citalopram 20 mg b.i.d. 5. Diclofenac 75 mg b.i.d. 6. [place] 7.5-325 one tablet p.o. b.i.d. 7. Losartan 25 mg p.o. daily. 8. Metoprolol succinate 25 mg daily. 9. Omeprazole 40 mg daily. 10. MiraLAX 17 g daily. 11. Simvastatin 20 mg at bedtime. 12. Tamsulosin 0.4 mg at bedtime. DISCONTINUED MEDICATIONS: None. HISTORY OF PRESENT ILLNESS/HOSPITAL COURSE: Mr. Sigala is a 59-year-old male with 7 month history of neck pain, numbness, tingling, weakness, and instability. He has been evaluated by Dr. Mock and has surgery scheduled for February 09. However, he reports he had gradual decline of his functioning and weakness leading to falls and is wanting his surgery moved up. He has been evaluated multiple times in the office and felt that surgery is not deemed urgent. He has also noted to have slightly erythematous right lower extremity that has been present for several months. The patient has been taking doxycycline in outpatient setting with no improvement in the erythema. He has had no pain, fever, warmth, and antibiotics were not continued in the hospital. On admission, his vital signs were stable and labs showed no acute changes. He was evaluated by PT and OT and felt that [facility] placement was appropriate to prevent falls at home. Neurosurgery was consulted, still felt surgery did not need to be done until February 09. The patient also reported a possible episode of syncope. He was monitored on telemetry and cardiac workup recently one month ago was negative. He had no further episodes. He did have couple episodes of symptomatic hypotension that might have contributed to this possible syncopal episode. His blood pressure medications were titrated down and his symptoms resolved. The patient reports the left facial droop. This was not new this hospitalization. It was first noted a month ago and workup at that time showed a CT that was negative, but he was unable to undergo MRI due to body habitus. Obesity hypoventilation syndrome. He underwent outpatient sleep study, but not have the second part of the sleep study to be titrated for CPAP, BiPAP. He used BiPAP during his last hospitalization and his BiPAP settings were resumed per Respiratory therapy. In the past, he has had waxing and waning mental status changes that are suspected to be secondary to low oxygenation at night when he does not use the BiPAP. He resumed on the BiPAP during hospitalization, but was unable to get the BiPAP at the [facility]. We felt that this did not hold up his discharge as he did not have any acute need for hospitalization and would be discharging home without the BiPAP anyway. Recommend sleep titration study as soon as he gets back home after surgery. His chronic medical conditions of hyperlipidemia, depression, insomnia. He was continued on home medications and these were stable throughout the course of his hospitalization. In regard to his morbid obesity, he is encouraged to continue with dietary changes. DISPOSITION: Stable. DISCHARGE INSTRUCTIONS: 1. Location: [facility] facility at [facility]. 2. Activity: As tolerated. 3. Diet: Supplement MightyShakes daily and dietary changes as recommended by outpatient dietitian. FOLLOWUP: Follow up with Dr. Mock for surgery on February 09 and appropriate COVID testing appointment. Follow up with Dr. Weldon at [facility]. Follow up with PCP after discharge from surgery. He will likely go to rehab after his back surgery. Job ID: [id number]
== END 2020-01-26 16:16 | disposition swing bed (61) | DRG 552 ==
LOC: ERS 08:38 → SURG A 14:42 → 2NO 18:01
PROVIDERS: ADMIT Family Medicine; ATTEND Family Medicine
DX: M48.02 Spinal stenosis, cervical region (principal); E66.2 Morbid (severe) obesity with alveolar hypoventilation; Z68.41 Body mass index [BMI] 40.0-44.9, adult; F11.20 Opioid dependence, uncomplicated; G47.00 Insomnia, unspecified; I25.10 Atherosclerotic heart disease of native coronary artery without angina pectoris; N40.1 Benign prostatic hyperplasia with lower urinary tract symptoms; N39.498 Other specified urinary incontinence; F17.290 Nicotine dependence, other tobacco product, uncomplicated; K21.9 Gastro-esophageal reflux disease without esophagitis; F32.9 Major depressive disorder, single episode, unspecified; M50.30 Other cervical disc degeneration, unspecified cervical region; I87.8 Other specified disorders of veins; R29.810 Facial weakness; R29.6 Repeated falls; K59.00 Constipation, unspecified; I95.9 Hypotension, unspecified; Z90.49 Acquired absence of other specified parts of digestive tract; Z79.899 Other long term (current) drug therapy; Z79.82 Long term (current) use of aspirin; Z86.73 Personal history of transient ischemic attack (TIA), and cerebral infarction without residual deficits
CPT/HCPCS: 36415; 80053; 81003; 83605; 83880; 84145; 84484; 85025; 94660; 96365; J0696; J1650

== ENCOUNTER 2020-02-06 05:40 | Outpatient (CLI) | payer MEDICARE, OTHER ==
--- NOTE | 2020-02-06 17:51 | EKG ---
Test Reason : Blood Pressure : / mmHG Vent. Rate : 064 BPM Atrial Rate : 064 BPM P-R Int : 164 ms QRS Dur : 086 ms QT Int : 418 ms P-R-T Axes : 044 -14 003 degrees QTc Int : 431 ms Sinus rhythm with occasional Premature ventricular complexes Minimal voltage criteria for LVH, may be normal variant Cannot rule out Anterior infarct (cited on or before 12-DEC-2019) Abnormal ECG When compared with ECG of 17-DEC-2019 19:46, Premature ventricular complexes are now Present Questionable change in initial forces of Lateral leads ST no longer elevated in Inferior leads Confirmed by KRISTINE BECKMAN, DR. Marie ([id number]) on 02/06/2020 5:51:07 PM Referred By: CONRADO Confirmed By:DR. Cynthia CARMONA MD
[2020-02-07 13:10] LABS: SARS-CoV-2 MS2 Positive; SARS-CoV-2 N Gene Negative; SARS-CoV-2 S Gene Negative; SARS-CoV-2 orf1ab Negative
== END 2020-02-06 05:41 | disposition home or self-care (01) ==
LOC: LABBT 05:40
PROVIDERS: ATTEND Neurological Surgery
DX: Z01.818 Encounter for other preprocedural examination (principal); Z11.59 Encounter for screening for other viral diseases; M54.12 Radiculopathy, cervical region
CPT/HCPCS: 93005; U0003; 87635; 93010

== ENCOUNTER 2020-02-10 05:23 | Inpatient (IN) | payer MEDICARE ==
--- NOTE | 2020-02-10 06:08 | HP ---
HISTORY OF PRESENT ILLNESS: Mr. Sigala is a 59-year-old man, presented to our clinic for evaluation of chronic neck pain with radicular pain in bilateral upper extremities that best fit in the C6 through C7 pattern. He unfortunately has encountered several instances of worsened pain that has brought him into the hospital. Ultimately, is hoping to have some form of surgical intervention performed. He also has significant anxiety disorder and what was thought to be pulmonary disorder or sleep apnea, but these things have been ruled out via sleep study and pulmonology workup. He brings a CT from [facility], which reveals significant foraminal stenosis from C5 through C7 with no obvious central canal stenosis that I can discern, although again this is a limited study. He is unable to tolerate MRI scan secondary to he has no significant breathing trouble when lying flat on his back. PAST MEDICAL HISTORY: Significant for hyperlipidemia, hypertension, obesity, gastroesophageal reflux disease, obstructive sleep apnea, obesity hypoventilation syndrome, depression, insomnia. PAST SURGICAL HISTORY: Cholecystectomy; knee arthroscopy; back surgery x2; bilateral foot surgeries, unspecified; nephrologic procedure, unspecified. SOCIAL HISTORY: Currently, he uses tobacco, but states he quit at the beginning of the year. PHYSICAL EXAMINATION: The patient is alert and oriented. Gait is slowed and severely antalgic, using a cane. Lower extremity motor exam is normal. Upper extremity motor exam is normal. He has negative Tinel's and Spurling's exam. Negative Guo's bilaterally. Diminished reflexes of the biceps and brachioradialis bilaterally. ASSESSMENT: Cervical radiculopathy. PLAN: Dr. Mock met with the patient, reviewed his imaging and advocated for C5 through C7 ACDF. He explained to the patient the risks, benefits, and alternatives to the procedure. The patient expressed understanding and elected to move forward with surgery as discussed. I do believe that the patient is mentally competent and capable of making medical decisions for himself. We will move forward with surgery as planned. Job ID: [id number]
[2020-02-10] MEDS ORDERED: Fentanyl 100 MCG/2 ML VIAL ONE (06:21)
[2020-02-10] MEDS ORDERED: Famotidine/PF 20 mg/2ml Vial ONE (06:22)
[2020-02-10] MEDS ORDERED: SUGAMMADEX SODIUM 500 MG/5 ML VIAL ONE (06:22)
[2020-02-10] MEDS ORDERED: Lidocaine 0.5%/Epinephrine 1:200,000 50 ml Vial ONE (06:49)
[2020-02-10] MEDS ORDERED: Midazolam HCl 2 mg/2 ml Vial ONE (07:01)
[2020-02-10] MEDS ORDERED: Promethazine HCl 25 MG/ML VIAL SLOW IVP PRN (07:59)
[2020-02-10] MEDS ORDERED: Promethazine HCl 25 MG/ML VIAL IM PRN (07:59)
[2020-02-10] MEDS ORDERED: Ondansetron HCl/PF 4 MG/2 ML Vial IVP PRN (07:59)
[2020-02-10] MEDS ORDERED: Thrombin 5000 UNITS/5 ML VIAL ONE (08:03)
[2020-02-10] MEDS ORDERED: Bisacodyl 10 MG SUPP PR PRN (08:55)
[2020-02-10] MEDS ORDERED: Ondansetron PF 4 MG/2 ML Vial IVP PRN (08:55)
[2020-02-10] MEDS ORDERED: diphenhydrAMINE 50 MG/ML VIAL IVP PRN (08:55)
[2020-02-10] MEDS ORDERED: Acetaminophen/Codeine 30-300mg Tablet PO PRN (08:55)
[2020-02-10] MEDS ORDERED: Acetaminophen 325 MG TAB PO PRN (08:55)
[2020-02-10] MEDS ORDERED: Albuterol Sulfate 2.5 mg/3 ml Neb NEB PRN (08:57)
--- NOTE | 2020-02-10 09:24 | OP ---
DATE OF PROCEDURE: 02/10/2020 CAR OILER: Omari Watt PA-C INDICATION: Pain and prevent neurologic decline. DIAGNOSIS: Cervical stenosis with cervical radiculopathy. PROCEDURE PERFORMED: Anterior cervical diskectomy and fusion, C5-C7. ANESTHESIA: General. DESCRIPTION OF PROCEDURE: The patient was brought into the operating room and placed under general anesthesia. He was placed on table in supine position. A transverse incision was planned over the lateral aspect of the neck on the right. After prepping and draping and after an appropriate preoperative pause, the incision was created. The underlying platysma muscle was identified and incised. A blunt tissue plane anterior to the sternocleidomastoid muscle was used to gain access to the prevertebral space. Self-retaining retractors were placed in the wound for optimal exposure. After confirming the appropriate levels with C-arm fluoroscopy, an annulotomy was performed in the C6-C7 disk space. All disk material as well as anterior and posterior osteophytes were removed. After completing the decompression, a 9-mm lordotic PEEK cage packed with allograft and autograft material was placed within the interbody space. We then redirected our attention to the level above at C5-C6, where again an annulotomy was performed. Disk material as well as anterior and posterior osteophytes were removed until the decompression was complete. After completing the decompression, an 8-mm lordotic PEEK cage packed with allograft and autograft material was placed within the interbody space. An anterior cervical plate was then fashioned to the front of the spine and secured with a total of 6 screws. Midline and lateral structures were inspected and found to be free from significant trauma. The wound was irrigated. Hemostasis was maintained throughout. The wound was then closed in anatomic layers, and a pressure dressing was applied. There were no known procedural complications. Job ID: [id number]
[2020-02-10] MEDS ORDERED: Glycopyrrolate 0.2 MG/ML 5 ML SYRINGE ONE (12:11)
[2020-02-10] MEDS ORDERED: Rocuronium Bromide 10 MG/ML (10ML VIAL) ONE (12:11)
[2020-02-10] MEDS ORDERED: Metoclopramide HCl 10 MG/2 ML VIAL ONE (12:11)
[2020-02-10] MEDS ORDERED: Dexamethasone 20 MG/5 ML VIAL ONE (12:11)
[2020-02-10] MEDS ORDERED: Lidocaine 1% PF 5 ML VIAL ONE (12:11)
[2020-02-10] MEDS ORDERED: EPHEDRINE 25 MG/5 ML SYRINGE ONE (12:11)
[2020-02-10] MEDS ORDERED: Ondansetron PF 4 MG/2 ML Vial ONE (12:11)
[2020-02-10] MEDS ORDERED: Ketorolac Tromethamine 30 MG/ML VIAL ONE (12:11)
[2020-02-10] MEDS ORDERED: Succinylcholine Chloride 20 MG/ML 10 ml SYRINGE FS ONE (12:11)
[2020-02-10] MEDS ORDERED: PROPOFOL 200 MG/20 ML VIAL ONE (12:11)
[2020-02-10] MEDS ORDERED: PHENYLEPHRINE-NS 100 MCG/ML 10 ML SYRINGE ONE (12:11)
[2020-02-10] MEDS: CEFAZOLIN 2 GM in Premix Bag 1 BAG IVPB SCH (14:43)
[2020-02-10] MEDS: Sodium Chloride 0.9% 1,000 ML IV SCH ×2 (14:46→23:55)
[2020-02-10] MEDS: Losartan 25 MG TAB PO SCH (14:51)
[2020-02-10] MEDS: Citalopram 20 MG TAB PO SCH ×2 (14:51→21:43)
[2020-02-10] MEDS: Vit A,C & E/Lutein/Minerals Tablet PO SCH (14:52)
[2020-02-10 15:05] LABS: Actual Bicarbonate (HCO3a) 25.9 mEq/L (22-28); Base Excess (BEa) -1.4 mEq/L (-2.0 to +3.0); CO2 Tension 54.2 mmHg (35.0-45.0); Carboxyhemoglobin (COHb) 0.7 gm% (0.0-3.0); Hemoglobin (Hb) 13.5 g/dL (14.0-18.0); O2 Tension (PaO2), arterial 85.4 mmHg (> 80.0); Potassium - ABG Lab 4.35 mmol/L (3.70-5.30)
[2020-02-10 15:44] LABS: Puncture Site L.R.
--- NOTE | 2020-02-10 16:03 | CON ---
DATE OF CONSULTATION: 02/10/2020 REASON FOR CONSULTATION: Postop respiratory failure. HISTORY OF PRESENT ILLNESS: The patient is a 59-year-old male, who underwent cervical neck surgery earlier today through an anterior approach. He was extubated after surgery. He had a sleep study performed on 12/30/2019, showing mild sleep apnea with AHI of 8.9 events per hour. He came back and subsequently had retitration on 01/12/2020, which was incomplete due to pain. He was therefore prescribed an auto CPAP, which I do not think he has picked up yet. His history and physical states he was ruled out for sleep disorder, but that is not true after surgery today. He has been very sleepy post extubation, he was therefore placed on BiPAP. PAST MEDICAL HISTORY: 1. Hyperlipidemia. 2. Hypertension. 3. ARSALAN. 4. Gastroesophageal reflux. 5. Obesity hypoventilation syndrome. 6. Depression. 7. Insomnia. PAST SURGICAL HISTORY: 1. Cholecystectomy. 2. Knee arthroscopy. 3. Back surgery. 4. Foot surgery. 5. Some type of kidney procedure. SOCIAL HISTORY: Quit smoking year. Does not consume alcohol. REVIEW OF SYSTEMS: Cannot be obtained because he is very sleepy. MEDICATIONS: Reviewed. Listed under active medications and home medication section in the chart. It is noted that he takes [place]. PHYSICAL EXAMINATION: VITAL SIGNS: Temperature 97.5, pulse 55, blood pressure 141/81, and O2 saturation 99% on BiPAP. GENERAL: The patient is arousable, but quickly falls back asleep. HEENT: Unremarkable. NECK: No adenopathy or JVD. He has a bandage on the left side of his neck. CARDIOVASCULAR: S1 and S2. Regular. LUNGS: Diminished breath sounds throughout. ABDOMEN: Soft and nontender to palpation. Very obese. EXTREMITIES: No clubbing, cyanosis, or edema. LABORATORY DATA: An ABG was ordered, but is pending. Previous blood gases have demonstrated mild hypercapnia. ASSESSMENT: 1. Lethargy postsurgery, most likely the effect of anesthetic. 2. Obesity hypoventilation syndrome. 3. Mild obstructive sleep apnea. PLAN: 1. Check ABG. 2. Continue BiPAP, I have increased ventilation settings where you can get more tidal volume. 3. Avoid RAIL LOADER depressing medications as much as possible. Job ID: [id number]
--- NOTE | 2020-02-10 16:12 | ULT ---
BILATERAL LOWER EXTREMITY VENOUS DOPPLER ULTRASOUND: 02/10/20 HISTORY: Bilateral lower extremity edema. TECHNIQUE: Nguyen scale, with color flow and spectral Doppler imaging of the deep venous system of the lower extre mity is performed bilaterally. FINDINGS: There is good flow, compression, and augmentation noted in the common femoral, femoral, deep femoral, popliteal, posterior tibial and greater saphenous veins on either side. IMPRESSION: No evidence of DVT in either lower extremity. POS: [facility]
[2020-02-10 18:35] VITALS: BMI 43.0
[2020-02-10] MEDS ORDERED: Tamsulosin HCl 0.4 MG CAP PO SCH (21:00)
[2020-02-10] MEDS: Atorvastatin Calcium 10 MG TAB PO SCH (21:42)
[2020-02-11] MEDS: CEFAZOLIN 2 GM in Premix Bag 1 BAG IVPB SCH
[2020-02-11 04:24] LABS: #Lymphocytes 1.2 thou/uL (1.20-3.40); #Monocytes 0.8 thou/uL (0.11-0.59); #Neutrophils 4.9 thou/uL (1.40-6.50); %Basophils 0.6 % (0.0-1.0); %Eosinophils 0.2 % (0.0-10.0); %Lymphocytes 17.9 % (21.0-51.0); %Monocytes 11.5 % (0.0-10.0); %Neutrophils 69.8 % (42.0-75.0); Hemoglobin 12.7 g/dL (14.0-18.0); Mean Corpuscular HGB CONC 32.5 g/dL (32.0-36.0); Mean Corpuscular Hemoglobin 30.5 pg (27.0-31.0); Mean Corpuscular Volume 94.1 fL (78.0-98.0); Mean Platelet Volume 7.2 fL (7.4-10.4); Platelet Count 230 thou/uL (130-400); RBC Distribution Width 11.9 % (11.5-14.5); Red Blood Cell (RBC) Count 4.15 mill/uL (4.70-6.10)
[2020-02-11 04:41] LABS: Anion Gap 12 mmol/L (10-20); BUN (Urea Nitrogen) 10 mg/dL (8.4-25.7); Calc. Creatinine Clearance 216 mL/min (70-130); Calcium 8.6 mg/dL (7.8-10.44); Carbon Dioxide 28 mmol/L (22-29); Chloride 102 mmol/L (98-107); Estimated GFR-MDRD Greater than 90; Glucose 104 mg/dL (70-105); Potassium 4.5 mmol/L (3.5-5.1); Sodium 137 mmol/L (136-145)
[2020-02-11] MEDS: Tamsulosin HCl 0.4 MG CAP PO SCH (06:34)
[2020-02-11] MEDS ORDERED: Prevnar 13-Val Conj/PF 0.5 ML SYRINGE IM ONE (09:00)
[2020-02-11] MEDS: Citalopram 20 MG TAB PO SCH ×2 (09:05→20:21)
[2020-02-11] MEDS: Vit A,C & E/Lutein/Minerals Tablet PO SCH (09:05)
[2020-02-11] MEDS: Losartan 25 MG TAB PO SCH (09:05)
[2020-02-11] MEDS: Acetaminophen/Codeine 30-300mg Tablet PO PRN (09:21)
[2020-02-11] MEDS: Cyclobenzaprine 10 MG TAB PO PRN (09:24)
[2020-02-11] MEDS: Morphine 2 MG/ML VIAL SLOW IVP PRN ×2 (11:32→20:27)
--- NOTE | 2020-02-11 11:32 | PRG ---
DATE OF SERVICE: 02/11/2020 Mr. Sigala continues to recover in the IMCU as he has had apnea. He still has evidence of myelopathy as expected and complains of neck pain. We will work on pain management and are awaiting rehab approval. His dressing is dry. Job ID: [id number]
[2020-02-11] MEDS: Sodium Chloride 0.9% 1,000 ML IV SCH (11:34)
--- NOTE | 2020-02-11 14:43 | PRG ---
DATE OF SERVICE: SUBJECTIVE: The patient is doing somewhat better from mental status standpoint. He is wearing his BiPAP while sleeping. He did eat lunch without difficulty. OBJECTIVE: VITAL SIGNS: His temperature is 98.5, pulse 73, blood pressure 97/54, O2 sat 97%. HEENT: Unremarkable. NECK: No adenopathy or JVD. CHEST: Clear. CARDIAC: S1 and S2 regular. ABDOMEN: Soft. EXTREMITIES: No edema. ASSESSMENT: Obstructive sleep apnea/obesity hypoventilation syndrome. PLAN: Continue BiPAP during sleeping hours. He is probably stable for discharge by tomorrow from respiratory standpoint. Job ID: [id number]
[2020-02-11] MEDS: Ketorolac Tromethamine 30 MG/ML VIAL IVP PRN (17:19)
[2020-02-11] MEDS: Atorvastatin Calcium 10 MG TAB PO SCH (20:21)
[2020-02-12] MEDS: Sodium Chloride 0.9% 1,000 ML IV SCH ×2 (05:39→15:51)
[2020-02-12] MEDS: Tamsulosin HCl 0.4 MG CAP PO SCH ×2 (05:39→20:41)
[2020-02-12] MEDS: Ketorolac Tromethamine 30 MG/ML VIAL IVP PRN ×2 (05:49→20:39)
[2020-02-12] MEDS: Losartan 25 MG TAB PO SCH (08:45)
[2020-02-12] MEDS: Citalopram 20 MG TAB PO SCH ×2 (08:46→20:38)
[2020-02-12] MEDS: Vit A,C & E/Lutein/Minerals Tablet PO SCH (08:46)
--- NOTE | 2020-02-12 10:39 | PRG ---
DATE OF SERVICE: 02/12/2020 Mr. Sigala has resting comfortably when I come in the room, although, he states that he is not doing well. He states he has increased neck pain. His dressings are dry. His neurologic exam is unchanged from yesterday with myelopathic findings in the upper extremities, but is able to lift his upper extremities and move his lower extremities to command. He is on CPAP as I am talking to him. We made changes yesterday to his pain medication regimen in particular adding Toradol as he was having decreased blood pressure with the narcotics. I am not quite convinced that his pain level is commensurate with reality as he appears again to be resting comfortably when I initially come in the room. Job ID: [id number]
--- NOTE | 2020-02-12 12:15 | PRG ---
DATE OF SERVICE: 02/12/2020 SUBJECTIVE: The patient is up walking with a walker today. He has been able to come off his BiPAP without difficulty. OBJECTIVE: VITAL SIGNS: Temperature 99.6, pulse 58, blood pressure 112/63, O2 saturation 100%. HEENT: Unremarkable. NECK: No JVD. CHEST: Clear breath sounds. ABDOMEN: Soft, obese. CARDIAC: S1, S2. Regular. ASSESSMENT: 1. Status post neck surgery. 2. Obstructive sleep apnea/obesity hypoventilation syndrome. PLAN: Continue BiPAP during sleeping hours. Likely should be able to go home as soon as cleared by Neurosurgery. Job ID: [id number]
[2020-02-12] MEDS: Acetaminophen/Codeine 30-300mg Tablet PO PRN (13:22)
[2020-02-12] MEDS: Morphine 2 MG/ML VIAL SLOW IVP PRN (15:25)
[2020-02-12] MEDS: Atorvastatin Calcium 10 MG TAB PO SCH (20:38)
[2020-02-13] MEDS: Sodium Chloride 0.9% 1,000 ML IV SCH ×2 (02:54→14:24)
[2020-02-13] MEDS: Cyclobenzaprine 10 MG TAB PO PRN ×2 (04:16→11:08)
[2020-02-13] MEDS: Morphine 2 MG/ML VIAL SLOW IVP PRN (05:10)
[2020-02-13] MEDS: Vit A,C & E/Lutein/Minerals Tablet PO SCH (08:17)
[2020-02-13] MEDS: Ketorolac Tromethamine 30 MG/ML VIAL IVP PRN (08:17)
[2020-02-13] MEDS: Losartan 25 MG TAB PO SCH (08:18)
[2020-02-13] MEDS: Citalopram 20 MG TAB PO SCH ×2 (08:18→20:06)
[2020-02-13] MEDS: traMADol HCl 50 MG TAB PO PRN ×2 (13:14→20:06)
[2020-02-13] MEDS: Tamsulosin HCl 0.4 MG CAP PO SCH (20:06)
[2020-02-13] MEDS: Atorvastatin Calcium 10 MG TAB PO SCH (20:06)
[2020-02-14] MEDS: Cyclobenzaprine 10 MG TAB PO PRN ×3 (01:29→21:07)
[2020-02-14] MEDS: traMADol HCl 50 MG TAB PO PRN ×2 (05:55→11:56)
[2020-02-14] MEDS: Sodium Chloride 0.9% 1,000 ML IV SCH ×2 (06:53→21:03)
[2020-02-14] MEDS: Vit A,C & E/Lutein/Minerals Tablet PO SCH (09:00)
[2020-02-14] MEDS: Citalopram 20 MG TAB PO SCH ×2 (09:00→21:04)
[2020-02-14] MEDS: Losartan 25 MG TAB PO SCH (09:00)
--- NOTE | 2020-02-14 17:26 | PRG ---
DATE OF SERVICE: 02/14/2020 TIME SEEN: 0730 hours. SUBJECTIVE: Mr. Sigala is resting quite heavily this morning with BiPAP on not to awaken him, but did discuss with his nurse for rehab admission. As of now, we still have no updates from Case Management, given that this is only submitted yesterday for authorization. Job ID: [id number]
[2020-02-14] MEDS: HYDROcodone/Acetaminophen 5/325 mg Tablet PO PRN (17:48)
[2020-02-14] MEDS: Atorvastatin Calcium 10 MG TAB PO SCH (21:04)
[2020-02-14] MEDS: Tamsulosin HCl 0.4 MG CAP PO SCH (21:04)
[2020-02-15] MEDS: HYDROcodone/Acetaminophen 5/325 mg Tablet PO PRN ×2 (03:56→16:42)
--- NOTE | 2020-02-15 06:30 | PRG ---
DATE OF SERVICE: 02/14/2020 TIME: 12:15 p.m. SUBJECTIVE: Mr. Sigala is now on the 4th day of hospital stay, is on the 3rd day status post two-level ACDF. We are tuning him up for inpatient rehab. Submissions have been made to [facility] and we are just waiting their recommendations at this point. He reports having more pain than he expected after neck surgery in the anterior aspect, idania-incisional region. He has been wearing his collar religiously as expected. He does admit the pains in his arm seem to be feeling better and the numbness in hands and function of his hands overall seem to be better. He also reports that his balance and walking also are perceptively better. So, this is excellent. He is speaking to me in even tones, sitting at the bedside, mostly comfortably, resting his head on his hands as he speaks. He does not appear to be in any significant distress. We discussed discharge options including return [facility], which he is vehemently adamant that he does not want to do, given their lack of BiPAP machines for his needs. I think this is a reasonable enough reason to not want to go there. Given his pulmonary concerns, mostly being apnea . From a recovery standpoint, I think he is doing very well. Incision is dry and well approximated. Bandage covering I discussed with him in length it may be several days before we hear anything from [employer], but ultimately we are working to get him into rehab. Plan at this time will be to continue to follow along. No additional intervention required. Job ID: [id number]
[2020-02-15] MEDS: Vit A,C & E/Lutein/Minerals Tablet PO SCH (08:39)
[2020-02-15] MEDS: traMADol HCl 50 MG TAB PO PRN (08:39)
[2020-02-15] MEDS: Citalopram 20 MG TAB PO SCH ×2 (08:40→19:56)
[2020-02-15] MEDS: Losartan 25 MG TAB PO SCH (08:40)
--- NOTE | 2020-02-15 09:51 | PRG ---
DATE OF SERVICE: 02/15/2020 SUBJECTIVE: Maria L Sigala is wearing the hospital device at night. He says he is doing well. He really had no excuse for not picking up his device that I had prescribed in the office. OBJECTIVE: VITAL SIGNS: He is afebrile. Heart rate is in the 60s, respiratory rates in the teens, oximetry is 99% on room air, blood pressure 131/83. LUNGS: Clear. HEART: Regular rhythm. ABDOMEN: Soft. IMPRESSION: 1. Status post cervical spine surgery with Dr. Mock. 2. Sleep apnea. I have encouraged him to either get family or proceed himself after discharge to sisal picker his device. He will need to follow up with me in 3 months to assess for compliance for Medicare reasons. Job ID: [id number]
[2020-02-15] MEDS: Sodium Chloride 0.9% 1,000 ML IV SCH ×2 (10:18→23:47)
--- NOTE | 2020-02-15 14:39 | PRG ---
DATE OF SERVICE: 02/15/2020 Mr. Sigala this morning is now postop day 5 following 2-level ACDF. He continues to endorse pain to the anterior neck and somewhat to the posterior neck, which has made it difficult for him to rest in bed overnight. He slept in the recliner, but tolerated this mostly well. He continues to work fairly well with physical therapy and notes he does see some improvement so far in his gait and overall arm symptoms. We will continue to await decision from [facility] regarding inpatient rehab. Hopefully today and potentially discharge him as soon as this afternoon. We will follow up with Case Management . Job ID: [id number]
[2020-02-15] MEDS: Atorvastatin Calcium 10 MG TAB PO SCH (19:55)
[2020-02-15] MEDS: Tamsulosin HCl 0.4 MG CAP PO SCH (19:56)
[2020-02-16] MEDS: HYDROcodone/Acetaminophen 5/325 mg Tablet PO PRN ×3 (05:51→17:26)
[2020-02-16] MEDS: Vit A,C & E/Lutein/Minerals Tablet PO SCH (07:59)
[2020-02-16] MEDS: Citalopram 20 MG TAB PO SCH (07:59)
[2020-02-16] MEDS: Losartan 25 MG TAB PO SCH (08:00)
[2020-02-16] MEDS ORDERED: Polyethylene Glycol 3350 17 GM Packet PO PRN (10:04)
[2020-02-16] MEDS: Sodium Chloride 0.9% 1,000 ML IV SCH (12:13)
[2020-02-16 16:55] VITALS: BP 109/68; TEMP 98.4
== END 2020-02-16 19:20 | DRG 472 ==
LOC: SDC 05:23 → IMCU/EMU 11:15 → SURG B 02-12 12:43 → SURG A 02-12 15:58 → SURG B 02-12 19:01 → SURG A 02-12 19:27
PROVIDERS: ADMIT Neurological Surgery; ATTEND Neurological Surgery
PROC: 0RG20A0 Fusion of 2 or more Cervical Vertebral Joints with Interbody Fusion Device, Anterior Approach, Anterior Column, Open Approach (ICD-10-PCS; principal; 2020-02-10)
PROC: 0RT30ZZ Resection of Cervical Vertebral Disc, Open Approach (ICD-10-PCS; 2020-02-10)
PROC: 01N10ZZ Release Cervical Nerve, Open Approach (ICD-10-PCS; 2020-02-10)
DX: M48.02 Spinal stenosis, cervical region (principal); Z68.41 Body mass index [BMI] 40.0-44.9, adult; E66.2 Morbid (severe) obesity with alveolar hypoventilation; G95.89 Other specified diseases of spinal cord; M54.12 Radiculopathy, cervical region; E78.5 Hyperlipidemia, unspecified; I10 Essential (primary) hypertension; K21.9 Gastro-esophageal reflux disease without esophagitis; F32.9 Major depressive disorder, single episode, unspecified; G47.00 Insomnia, unspecified; I25.10 Atherosclerotic heart disease of native coronary artery without angina pectoris; J30.2 Other seasonal allergic rhinitis; N40.0 Benign prostatic hyperplasia without lower urinary tract symptoms; J43.9 Emphysema, unspecified; Z95.2 Presence of prosthetic heart valve; Z87.891 Personal history of nicotine dependence; Z99.89 Dependence on other enabling machines and devices; Z79.899 Other long term (current) drug therapy
CPT/HCPCS: 36415; 76000; 80048; 82805; 85025; 90471; 90670; 93970; 94660; C1713; C1776; G0009; J0690; J1100; J1885; J2001; J2250; J2270; J2405; J2704; J2765; J3010; S0028

== ENCOUNTER 2020-11-20 11:08 | Outpatient (CLI) | payer MEDICARE ==
[2020-11-20 22:35] LABS: SARS-CoV-2 PCR by NAA Not Detected (NotDetected)
== END 2020-11-20 11:09 | disposition home or self-care (01) ==
LOC: LABBT 11:08
PROVIDERS: ATTEND Neurological Surgery
DX: Z01.818 Encounter for other preprocedural examination (principal); M50.20 Other cervical disc displacement, unspecified cervical region; Z20.822 Contact with and (suspected) exposure to COVID-19
CPT/HCPCS: U0003; U0005; 87635

== ENCOUNTER 2020-11-23 09:50 | Day surgery (SDC) | payer MEDICARE ==
[2020-11-22 10:28] VITALS: BMI 38.9
[2020-11-23] MEDS ORDERED: Fentanyl 100 MCG/2 ML VIAL ONE (11:47)
[2020-11-23] MEDS ORDERED: ePHEDrine Sulfate 50 MG/10 ML VIAL ONE (12:00)
[2020-11-23] MEDS ORDERED: Rocuronium Bromide 10 MG/ML (10ML VIAL) ONE (12:00)
[2020-11-23] MEDS ORDERED: Lidocaine 1% PF 5 ML VIAL ONE (12:00)
[2020-11-23] MEDS ORDERED: PROPOFOL 200 MG/20 ML VIAL ONE (12:00)
[2020-11-23] MEDS ORDERED: Dexamethasone 20 MG/5 ML VIAL ONE (12:00)
[2020-11-23] MEDS ORDERED: Ondansetron PF 4 MG/2 ML Vial ONE (12:00)
[2020-11-23] MEDS ORDERED: Glycopyrrolate 0.2 MG/ML 5 ML SYRINGE ONE (12:00)
[2020-11-23] MEDS ORDERED: Magnevist 469MG/ML 20 ML VIAL ONE (12:38)
== END 2020-11-23 16:28 | disposition home or self-care (01) ==
LOC: SDC/OP 09:50 → EDSTATUS 12:00 → SDC/OP 16:28
PROVIDERS: ATTEND Neurological Surgery
DX: M47.22 Other spondylosis with radiculopathy, cervical region (principal); M47.814 Spondylosis without myelopathy or radiculopathy, thoracic region; M51.24 Other intervertebral disc displacement, thoracic region; M51.34 Other intervertebral disc degeneration, thoracic region; M47.16 Other spondylosis with myelopathy, lumbar region; M43.16 Spondylolisthesis, lumbar region; I10 Essential (primary) hypertension; G47.33 Obstructive sleep apnea (adult) (pediatric); Z79.82 Long term (current) use of aspirin; Z79.899 Other long term (current) drug therapy; Z98.1 Arthrodesis status
CPT/HCPCS: 36415; 70553; 72141; 72146; 72148; 82565; A9579; J1100; J2405; J2704; J3010